=== PATIENT | male | born 1955 | race Caucasian/White ===

== ENCOUNTER 2016-10-09 19:58 | Emergency (ER) | payer MEDICARE ==
[2016-10-09 20:18] VITALS: BP 159/88
--- NOTE | 2016-10-09 20:55 | RAD ---
INDICATION: Cough and wheezing COMPARISON: Chest x-ray November 26, 2014 TECHNIQUE: PA and lateral dual-energy views were obtained. FINDINGS: Bones/Soft Tissues: There are no acute bony findings. Cardiomediastinal: The cardiomediastinal silhouette is unchanged. The central pulmonary vessels are prominent perhaps related to pulmonary arterial hypertension. Lungs: There are no infiltrates. There is hyperinflation. Pleura: There are no pleural effusions. Other: None IMPRESSION: HYPERINFLATION. NO ACTIVE DISEASE..
[2016-10-09] MEDS ORDERED: Albuterol HFA INHALER* 8 gm MDI INH ONE (21:05)
[2016-10-09] MEDS ORDERED: Benzonatate CAP* 100 MG PO ONE (21:06)
--- NOTE | 2016-10-09 21:17 | UC ---
FLU HPI - HPI Summary HPI Summary: THREE DAYS OF COUGH FEVER BODY ACHES, SORE THROAT. TODAY FEVER WAS 101F. SYMPTOMS BEGAN WITH COUGH SORE THROAT, NASAL CONGESTION. SORE THROAT NO WRESOLVED, BUT COUGH IS BECOMING WORSE. - History of Current Complaint Chief Complaint: UCGeneralIllness Stated Complaint: COUGH Time Seen by Provider: 10/09/16 20:01 Hx Obtained From: Patient Onset/Duration: Gradual Onset, Lasting Days, Still Present Severity Currently: Moderate Severity Initially: Mild Associated Signs & Symptoms: Positive: Fever, Myalgia, Cough, Sore Throat - RESOLVED, Nasal Congestion Related Hx: Possible Flu/Infectious Exposure - Allergy/Home Medications Allergies/Adverse Reactions: Allergies Allergy/AdvReac Type Severity Reaction Status Date / Time No Known Allergies Allergy Verified 10/09/16 20:10 PMH/Surg Hx/FS Hx/Imm Hx Previously Healthy: Yes Endocrine History Of: Reports: Diabetes Denies: Thyroid Disease Cardiovascular History Of: Reports: Cardiac Disorders - stent, Hypertension Denies: Pacemaker/ICD Respiratory History Of: Denies: COPD, Asthma GI/ History Of: Denies: Ulcer Psychological History Of: Reports: Anxiety, Depression - Surgical History Surgical History: Yes Surgery Procedure, Year, and Place: CARDIAC STENT 2000 INFO IN PACS UNDER MRI TETRA STENT,. BASAL CELL - REMOVED FROM FACE. SPINAL STIMULATOR - ALL COMPONENTS HAVE BEEN REMOVED ABOUT - 4 YRS AGO - @ [facility] [place] - Family History Known Family History: Positive: Cardiac Disease Negative: Hypertension, Diabetes - Social History Occupation: Employed Full-time Lives: With Family Alcohol Use: None Substance Use Type: None Smoking Status (MU): Former Smoker Type: Cigarettes Length of Time of Smoking/Using Tobacco: 20 years Have You Smoked in the Last Year: No When Did the Patient Quit Smoking/Using Tobacco: 10 yrs ago - Immunization History Most Recent Influenza Vaccination: none Most Recent Tetanus Shot: 2013 Most Recent Pneumonia Vaccination: none Review of Systems Constitutional: Fever, Chills Skin: Negative Eyes: Negative ENT: Negative Respiratory: Cough Cardiovascular: Negative Gastrointestinal: Negative Genitourinary: Negative Motor: Negative Neurovascular: Negative Musculoskeletal: Myalgia Neurological: Negative Psychological: Negative All Other Systems Reviewed And Are Negative: Yes Physical Exam Triage Information Reviewed: Yes Appearance: Well-Appearing, No Pain Distress, Well-Nourished Vital Signs: Initial Vital Signs Temp 99 F 10/09/16 20:13 Pulse 76 10/09/16 20:13 Resp 18 10/09/16 20:13 BP 159/88 10/09/16 20:13 Pulse Ox 96 10/09/16 20:13 Vital Signs Reviewed: Yes Eye Exam: Normal Eyes: Positive: Conjunctiva Clear ENT Exam: Normal ENT: Positive: Normal ENT inspection, Hearing grossly normal, Pharynx normal, TMs normal Dental Exam: Normal Neck exam: Normal Neck: Positive: Supple, Nontender Respiratory: Positive: Chest non-tender, Lungs clear, No respiratory distress, No accessory muscle use, Wheezing Cardiovascular Exam: Normal Cardiovascular: Positive: RRR, No Murmur, Pulses Normal Abdominal Exam: Normal Abdomen Description: Positive: Nontender, No Organomegaly Musculoskeletal Exam: Normal Musculoskeletal: Positive: Strength Intact Neurological Exam: Normal Psychological Exam: Normal Psychological: Positive: Normal Response To Family Skin Exam: Normal Flu Course/Dx - Differential Dx/Diagnosis Differential Diagnosis/HQI/PQRI: Bronchitis, Broncholiolitis, Influenza, Upper Respiratory Infection Provider Diagnoses: BRONCHITIS WITH BRONCHOSPASM Discharge - Discharge Plan Condition: Stable Disposition: HOME Prescriptions: Benzonatate CAP* [Tessalon CAP*] 100 mg PO TID PRN #15 cap PRN Reason: Cough Patient Education Materials: Upper Respiratory Infection (ED) Referrals: Louis Fernandez MD [Primary Care Provider] -
== END 2016-10-09 21:22 | disposition home or self-care (01) ==
LOC: UCEAST 19:58
DX: J20.9 Acute bronchitis, unspecified (principal); Z98.61 Coronary angioplasty status; Z85.828 Personal history of other malignant neoplasm of skin; Z87.891 Personal history of nicotine dependence
CPT/HCPCS: 71020; 87502; 99212; A9270-GY; G0463

== ENCOUNTER 2017-12-06 18:26 | Emergency (ER) | payer MEDICARE ==
[2017-12-06 19:21] VITALS: BP 163/80
--- NOTE | 2017-12-06 19:47 | UC ---
Respiratory Complaint HPI - HPI Summary HPI Summary: Patient presents with 1 week of persistent cough, chest congestion and overall malaise. States he has had a low-grade fever that broke last night. He is concerned that his cough and congestion are not improving and that he has some intermittent shortness of breath. Has a remote history of smoking having quit 20 years ago. - History of Current Complaint Chief Complaint: UCGeneralIllness Stated Complaint: COUGH Time Seen by Provider: 12/06/17 19:29 Hx Obtained From: Patient Onset/Duration: Gradual Onset, Lasting Days, Still Present Timing: Constant Severity Initially: Moderate Severity Currently: Moderate Pain Intensity: 0 Pain Scale Used: 0-10 Numeric Character: Cough: Nonproductive Aggravating Factors: Nothing Alleviating Factors: Nothing Associated Signs And Symptoms: Positive: Fever, Chills, URI, Nasal Congestion - Allergies/Home Medications Allergies/Adverse Reactions: Allergies Allergy/AdvReac Type Severity Reaction Status Date / Time No Known Allergies Allergy Verified 12/06/17 19:10 Home Medications: Home Medications Ibuprofen TAB* [Motrin TAB* 600 MG] 600 mg PO Q6H PRN 12/06/17 [History Confirmed 12/06/17] PMH/Surg Hx/FS Hx/Imm Hx Cardiovascular History: Cardiac Disease, Hypertension - Surgical History Surgical History: Yes Surgery Procedure, Year, and Place: CARDIAC STENT 2000 INFO IN PACS UNDER MRI TETRA STENT,. BASAL CELL - REMOVED FROM FACE. SPINAL STIMULATOR - ALL COMPONENTS HAVE BEEN REMOVED ABOUT - 4 YRS AGO - @ [facility] – [place] - Family History Known Family History: Positive: Cardiac Disease, Hypertension Negative: Diabetes - Social History Alcohol Use: None Substance Use Type: None Smoking Status (MU): Former Smoker Type: Cigarettes Length of Time of Smoking/Using Tobacco: 20 years Have You Smoked in the Last Year: No When Did the Patient Quit Smoking/Using Tobacco: 10 yrs ago - Immunization History Most Recent Influenza Vaccination: none Most Recent Tetanus Shot: 2013 Most Recent Pneumonia Vaccination: none Review of Systems Constitutional: Fever, Chills, Fatigue ENT: Sore Throat Respiratory: Cough Cardiovascular: Negative Gastrointestinal: Negative All Other Systems Reviewed And Are Negative: Yes Physical Exam Triage Information Reviewed: Yes Appearance: Well-Appearing, No Pain Distress, Well-Nourished Vital Signs: Initial Vital Signs Temp 99.3 F 12/06/17 19:13 Pulse 66 12/06/17 19:13 Resp 20 12/06/17 19:13 BP 163/80 12/06/17 19:13 Pulse Ox 96 12/06/17 19:13 Vital Signs Reviewed: Yes Eyes: Positive: Conjunctiva Clear ENT: Positive: Hearing grossly normal, Pharynx normal, TMs normal Neck: Positive: Supple, Nontender, No Lymphadenopathy Respiratory: Positive: No respiratory distress, No accessory muscle use, Decreased breath sounds, Wheezing - DIFFUSE Cardiovascular Exam: Normal Abdomen Description: Positive: Soft Musculoskeletal: Positive: No Edema Neurological: Positive: Alert Psychological: Positive: Age Appropriate Behavior Skin: Negative: rashes UC Diagnostic Evaluation - Laboratory O2 Sat by Pulse Oximetry: 96 - Radiology Xray Interpretation: Positive (See Comments) - HYPERINFLATION, CONSISTENT WITH COPD. NO ACTIVE CARDIOPULMONARY DISEASE. Radiology Interpretation Completed By: Radiologist Respiratory Course/Dx - Differential Dx/Diagnosis Provider Diagnoses: ACUTE BRONCHITIS Discharge - Sign-Out/Discharge Documenting (check all that apply): Discharge - Discharge Plan Condition: Stable Disposition: HOME Prescriptions: Albuterol HFA INHALER* [Ventolin HFA Inhaler*] 2 puff INH Q4H PRN #1 mdi PRN Reason: Shortness Of Breath Azithromycin 500 mg PO DAILY #4 tab predniSONE TAB* [Deltasone TAB*] 50 mg PO DAILY #4 tab Patient Education Materials: Acute Bronchitis (ED), COPD (Chronic Obstructive Pulmonary Disease) (ED) Referrals: Louis Fernandez MD [Primary Care Provider] - If Needed Additional Instructions: Chest x-ray today showed changes consistent with COPD. Consider having this officially evaluated by your primary care physician. Will treat today for acute bronchitis. YOUR SYMPTOMS MAY BE VIRALLY MEDIATED BUT GIVEN THE LENGTH OF TIME YOU HAVE BEEN ILL WE WILL COVER YOU WITH ANTIBIOTICS. IF YOU START THE MEDICINE BE SURE TO TAKE IT FOR THE FULL COURSE. REST, HYDRATE, OTC MEDS NEEDED. WILL ALSO TREAT WITH PREDNISONE AND RENEW ALBUTEROL INHALER TO HELP WITH AIRWAY INFLAMMATION. SEEK FOLLOW-UP WITH YOUR PCP IF YOU ARE NOT IMPROVING OVER THE NEXT 1-2 WEEKS. - Billing Disposition and Condition Condition: STABLE Disposition: HOME
--- NOTE | 2017-12-06 20:00 | RAD ---
HISTORY: Cough, fever COMPARISONS: October 09, 2016 VIEWS: 4: Frontal dual-energy and lateral views of the chest. FINDINGS: CARDIOMEDIASTINAL SILHOUETTE: The cardiomediastinal silhouette is normal. EMEKA: The emeka are normal. PLEURA: The costophrenic angles are sharp. No pleural abnormalities are noted. LUNG PARENCHYMA: There is hyperinflation with flattening of the diaphragm and expansion of the AP diameter of the chest. ABDOMEN: The upper abdomen is clear. There is no subphrenic gas. BONES AND SOFT TISSUES: Degenerative changes are noted along the spine. OTHER: None. IMPRESSION: HYPERINFLATION, CONSISTENT WITH COPD. NO ACTIVE CARDIOPULMONARY DISEASE.
[2017-12-06] MEDS ORDERED: Azithromycin TAB* 250 MG PO ONE (20:27)
[2017-12-06] MEDS ORDERED: predniSONE TAB* 20 MG PO ONE (20:27)
== END 2017-12-06 20:35 | disposition home or self-care (01) ==
LOC: UCEAST 18:26
DX: J20.9 Acute bronchitis, unspecified (principal); Z87.891 Personal history of nicotine dependence
CPT/HCPCS: 71046; 99212; A9270-GY; G0463; J7512

== ENCOUNTER 2018-07-02 14:15 | Observation (INO) | payer MEDICARE ==
[2018-07-02] MEDS ORDERED: Diltiazem IV* 5 MG/ML 5 ML VIAL (for loading dose/IV Push) (25 MG) IV SLOW PU ONE (14:39)
--- NOTE | 2018-07-02 15:19 | ED ---
Palpitations / Dysrhythmia - HPI Summary HPI Summary: This patient is a 62 year old M presenting to [facility] [place] accompanied by his son with a chief complaint of shortness of breath since 0900. He endorses SOB (1st onset sx, only with exertion), bloating like I just had eaten a huge meal, intermittent chest discomfort, decreased appetite. He denies current CP, abd pain, nausea, dizziness, lightheadedness, and diaphoresis. PMHx angina, 4x stents placed in January 2018, palpitations (undiagnosed), and denies PMHx PA. He went to see his PCP about the acute dyspnea and was found to be in rapid atrial fibrillation and was referred to the ED. His anginal symptoms have been stable since last his procedure this past spring, and he has not had any anginal type symptoms accompanying his presentation today. - History of Current Complaint Chief Complaint: EDDysrhythmPalp Time Seen by Provider: 07/02/18 14:22 Hx Obtained From: Patient Onset/Duration: Sudden Onset, Lasting Hours, Still Present Timing: Constant Severity Initially: Moderate Severity Currently: Moderate Character: Fast, Fluttering Aggravating: Exertion - SOB Alleviating: Rest - SOB Associated Signs & Symptoms: Shortness of Breath - Allergy/Home Medications Allergies/Adverse Reactions: Allergies Allergy/AdvReac Type Severity Reaction Status Date / Time No Known Allergies Allergy Verified 12/06/17 19:10 Home Medications: Home Medications Aspirin EC TAB* [Ecotrin EC Low Dose 81 MG*] 81 mg PO DAILY 07/02/18 [History Confirmed 07/02/18] Lisinopril TAB* [Prinivil TAB*] 10 mg PO BID 07/02/18 [History Confirmed ] Modafinil TAB* [Provigil TAB*] 200 mg PO DAILY 07/02/18 [History Confirmed 07/02] Oxycodone TAB(NF) [Oxycodone HCl 10 MG] 10 mg PO TID PRN 07/02/18 [History Confirmed 07/02/18] Prasugrel (NF) [Effient (NF)] 10 mg PO DAILY 07/02/18 [History Confirmed ] amLODIPine TAB* [Norvasc 5 mg TAB*] 5 mg PO DAILY 07/02/18 [History Confirmed ] oxyCODONE SR TAB(*) [Oxycontin 40 mg (*)] 40 mg PO Q12HR 07/02/18 [History Confirmed 07/02/18] PMH/Surg Hx/FS Hx/Imm Hx Endocrine/Hematology History: Denies: Hx Diabetes, Hx Thyroid Disease Cardiovascular History: Reports: Hx Coronary Artery Disease, Hx Hypertension - ON MEDS Denies: Hx Pacemaker/ICD Respiratory History: Denies: Hx Asthma, Hx Chronic Obstructive Pulmonary Disease (COPD) GI History: Reports: Hx Gastroesophageal Reflux Disease, Hx Hiatal Hernia Denies: Hx Ulcer Musculoskeletal History: Reports: Hx Arthritis, Hx Back Problems Sensory History: Reports: Other Sensory Impairments - 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 Denies: Hx Deafness, Hx Hearing Aid Opthamlomology History: Reports: Other Sensory Impairments - 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 BASAL CELL - REMOVED FROM FACE. SPINAL STIMULATOR - ALL COMPONENTS HAVE BEEN REMOVED ABOUT - 4 YRS AGO - [place] [facility] [place] Infectious Disease History: No Infectious Disease History: Reports: Hx Tuberculosis - positive Denies: Hx Clostridium Difficile, Hx Hepatitis, Hx Human Immunodeficiency Virus (HIV), Hx of Known/Suspected MRSA, Hx Shingles, Hx Known/Suspected VRE, Hx Known/Suspected VRSA, History Other Infectious Disease, Traveled Outside the [place] in Last 30 Days - Family History Known Family History: Positive: Cardiac Disease, Hypertension Negative: Diabetes - Social History Alcohol Use: Rare Hx Substance Use: No Substance Use Type: Reports: None Hx Tobacco Use: No Smoking Status (MU): Former Smoker Type: Cigarettes Length of Time of Smoking/Using Tobacco: 20 years Have You Smoked in the Last Year: No Review of Systems Negative: Skin Diaphoresis Positive: Palpitations. Negative: Chest Pain Positive: Shortness Of Breath Positive: Other - bloated feeling, decreased appetite. Negative: Abdominal Pain , Nausea Positive: no symptoms reported Neurological: Other - NEGATIVE: dizziness and lightheadedness All Other Systems Reviewed And Are Negative: Yes Physical Exam - Summary Physical Exam Summary: Appearance: Well-appearing, Well-nourished, lying in bed comfortably Skin: Warm, dry, no obvious rash Eyes: sclera anicteric, no conjunctival pallor ENT: mucous membranes moist, pharynx appears normal Neck: Supple, nontender Respiratory: Clear to auscultation, no signs of respiratory distress Cardiovascular: Rapid, irregular pulse. No murmurs. Normal distal pulses in tibial and radial bilaterally. Abdomen: Soft, nontender, normal active bowel sounds present Musculoskeletal: Normal, Strength/ROM Intact Neurological: A&Ox3, awake and alert, mentation is normal, speech is fluent and appropriate Psychiatric: affect is normal, does not appear anxious or depressed Triage Information Reviewed: Yes Vital Signs On Initial Exam: Initial Vitals Pulse Resp BP Pulse Ox 144 18 137/89 97 07/02/18 14:18 07/02/18 14:18 07/02/18 14:18 07/02/18 14:18 Vital Signs Reviewed: Yes Diagnostics - Vital Signs Vital Signs Pulse Resp BP Pulse Ox 07/02/18 15:04 116 15 120/84 07/02/18 15:02 115 13 132/87 93 07/02/18 15:00 121 13 95 07/02/18 14:59 98 9 138/91 95 07/02/18 14:39 111 11 134/101 97 07/02/18 14:38 20 07/02/18 14:18 144 18 137/89 97 - Laboratory Result Diagrams: 07/02/18 15:27 07/02/18 15:27 Lab Statement: Any lab studies that have been ordered have been reviewed, and results considered in the medical decision making process. - Radiology CXR Xray Interpretation: No Acute Changes Radiology Interpretation Completed By: Radiologist - No active cardiopulmonary disease is noted. Dr. Euceda has reviewed this report. - EKG 1420 Cardiac Rate: Tachycardia - 122 EKG Rhythm: Atrial Fibrillation Ectopy: None EKG Interpretation: AFib with RVR, RBBB, LAFB Course/Dx - Course Course Of Treatment: A 62-year-old M presents to the ED with a CC of fluttering palpitations for since 0900. (+) bloated feeling "like I just ate a huge meal", decreased appetite, SOB at exertion. (-) nausea, current CP, dizziness, lightheadedness, abd pain, diaphoresis. PMHx angina, undiagnosed palpitations. A CXR was (-). An EKG reveals atrial fibrillation with RVR at 122 BPM, RBBB, and LAFB. In the ED course, pt was given diltiazem. Pt labs show a trop of 0.09 , and a 2nd trop of 0.21, low lypmh %, high mono %, high glucose, - Diagnoses Provider Diagnoses: New onset atrial fibrillation, Atrial fibrillation with rapid ventricular response - Physician Notifications Discussed Care Of Patient With: Carlyn Ross Time Discussed With Above Provider: 17:35 Instructed by Provider To: Other - Accepts admission. Discharge - Sign-Out/Discharge Documenting (check all that apply): Patient Departure - admit - Discharge Plan Condition: Fair Disposition: ADMITTED TO [facility] - Attestation Statements Document Initiated by Scribe: Yes Documenting Scribe: Eliceo Ward Provider For Whom Scribe is Documenting (Include Credential): Dr. Juan José Euceda MD Scribe Attestation: IEliceo, scribed for Dr. Juan José Euceda MD on 07/02/18 at 1903.
--- NOTE | 2018-07-02 15:22 | RAD ---
Indication: New onset atrial fibrillation with shortness of breath. Single frontal view of the chest performed at 1515 hours was reviewed. Comparison is made with previous exam dated December 06, 2017. No mediastinal shift is noted. Heart is of normal size and configuration. Lung breaux appear clear. IMPRESSION: NO ACTIVE CARDIOPULMONARY DISEASE IS NOTED.
[2018-07-02 15:44] LABS: ABS Basophils 0 10^3/ul (0-0.2); ABS Eosinophils 0.1 10^3/ul (0-0.6); ABS Lymphocytes 1.4 10^3/ul (1.0-4.8); ABS Monocytes 0.7 10^3/ul (0-0.8); ABS Neutrophils 6.6 10^3/ul (1.5-7.7); ABS Nucleated RBC 0 10^3/ul; Eosinophil % 1.3 % (0-6); Hematocrit 42 % (42-52); Lymphocyte % 15.6 % (25-47); Mean Corpuscular HGB Conc 34 g/dl (31-36); Mean Corpuscular Hemoglobin 30 pg (27-31); Mean Corpuscular Volume 89 fL (80-94); Mean Platelet Volume 7.7 um3 (7.4-10.4); Nucleated Red Blood Cells % 0; Platelet Count 263 10^3/ul (150-450); Red Blood Count 4.69 10^6/ul (4.00-5.40); Red Cell Distribution Width 13 % (10.5-15); White Blood Count 8.8 10^3/ul (3.5-10.8)
[2018-07-02 16:04] LABS: EGFR Non-African American 108.2 (>60)
[2018-07-02] MEDS ORDERED: oxyCODONE TAB* 5 MG TAB PO PRN (18:19)
[2018-07-02] MEDS ORDERED: NS 0.9% 500 ML* 500 ML IV ONE (18:23)
[2018-07-02] MEDS ORDERED: Diltiazem IV* 5 MG/ML 5 ML VIAL (for loading dose/IV Push) (25 MG) IV SLOW PU STA (18:23)
[2018-07-02] MEDS ORDERED: Metoprolol Tartrate IV* 1 MG/ML 5 ML VIAL IV PRN ×2 (18:25→18:26)
[2018-07-02] MEDS ORDERED: NS 0.9% 1000 ML* 1,000 ML IV SCH (18:30)
[2018-07-02] MEDS ORDERED: Enoxaparin(*) 40 MG/0.4 ML SYR SUBCUT SCH (20:00)
[2018-07-02] MEDS ORDERED: ALPRAZolam TAB* 0.5 MG PO PRN (20:24)
[2018-07-02] MEDS: oxyCODONE SR TAB(*) 40 MG TAB.SR PO SCH (21:33)
[2018-07-02] MEDS: Lisinopril TAB* 10 MG PO SCH (21:33)
--- NOTE | 2018-07-02 21:33 | HP ---
ADMISSION HISTORY AND PHYSICAL: DATE OF ADMISSION: 07/02/18. CHIEF COMPLAINT: Shortness of breath. HISTORY OF PRESENT ILLNESS: The patient is a 62-year-old gentleman with history of hypertension, CAD, status post PCI to the RCA back in 2000, and a repeat PCI to RCA with drug eluting stent x4 in January of 2018, who denies any previous history of CO, but has had a history of angina, who presented with the above chief complaint. He mentioned that after eating breakfast he felt a lot velarde that what he would usually feel after eating and felt short of breath especially with mild exertion such as walking or any mild activity. He then went to a [facility] at around 12:20 PM where an EKG was done and he was told that his heart rate was elevated and he was in AFib, and recommended that he be evaluated in the ED and hence his subsequent evaluation and admission for observation. In the ED, he was indeed found to have AFib with mild rapid ventricular response in the rate of 120s. He had received one time dose of 15 mg IV Cardizem in the ED and mentioned that he feels better although his heart rate is still in the 110s to 120s and sometimes high 90s. PAST MEDICAL HISTORY: Hypertension, depression, obesity, PTSD, lumbosacral spondylosis, unknown skin cancer, hyperlipidemia, history of CAD, status post PCI to RCA in 2000, and repeat PCI to RCA with HARJIT x4 in 01/2018. PAST SURGICAL HISTORY: There are no known surgical history other than PCIs. ALLERGIES: SERZONE. FAMILY HISTORY: Father related to cigarettes and the patient's father was diagnosed with heart disease in his 60s. His mother is alive and well, although has been diagnosed with some form of heart disease in her 70s. SOCIAL HISTORY: He quit smoking more than 20 years ago. Denies any history of alcohol or drug use. He is retired and healthcare proxy is his . REVIEW OF SYSTEMS: He complained of some shortness of breath and palpitation, but no longer has them at the time of my evaluation and he denied any headache, fevers, chills, nausea, vomiting, chest pain. He did complain of some shortness of breath, which had recently resolved as described. Denied any abdominal pain, diarrhea, constipation, pain, and/or increased frequency, and urination, myalgias, arthralgias, throat pain or new skin lesions. The rest of the 14 point review of systems are otherwise unremarkable. PHYSICAL EXAMINATION GENERAL APPEARANCE: The patient is awake, alert, and oriented x3, no in acute distress. VITAL SIGNS: Reveals most recent vital signs of records with blood pressure of 129/92, 97 beats per minute heart rate, saturating at 96%, respiratory rate of 15 per minute. HEENT: Normocephalic, atraumatic. PERRLA. Extraocular muscles intact. Negative for icterus. Moist oral mucosa. Negative throat erythema. NECK: Soft, supple with no cervical lymphadenopathy. No JVD. LUNGS: Clear to auscultation bilaterally. Good air entry. No wheezes, rales or rhonchi. HEART: S1, S2 within normal limits. Regular rate and rhythm. No murmurs, rubs or gallops. ABDOMEN: Soft, nondistended, nontender. Normoactive bowel sounds x4 quadrants. EXTREMITIES: No cyanosis, clubbing or edema. PSYCHIATRIC: No active psychosis, depression, suicidal or homicidal ideations. SKIN: Warm to touch. DIAGNOSTIC STUDIES/LAB DATA: Most recent and pertinent laboratories, CBC shows WBC, H and H, and platelets counts were normal, although in the differential, he had some mild monocytosis of 7.6. D-dimer is less than 200. Sodium, potassium, BUN, and creatinine as well as his GFR are in normal range. Troponin is mildly elevated at 0.09. Serum alcohol level is less than 10. TSH of 1.02. Chest x-ray shows no acute disease. EKG shows atrial fibrillation with mild rapid ventricular response at a rate of 120s. ASSESSMENT AND PLAN: As follows, the patient is a 62-year-old gentleman with a history of hyperlipidemia, hypertension, coronary artery disease, status post percutaneous coronary intervention, being admitted for new onset atrial fibrillation with a SANDRA VASc score of 1. 1. New onset atrial fibrillation unclear what may have been precipitated this; however, on review of his medications, he is on modafinil and he mentions that he has been prescribed recently new psychiatric drugs that he has not taken and since this can cause tachycardia, we will hold this for now. I am unclear as to whether modafinil was the medication that he mentioned and we will clarify in a.m. At this time, we will continue to monitor troponins and likely elevated troponin is likely due to demand ischemia given known coronary artery disease. Given the patient's SANDRA VASc score is 1 and the patient is on dual- antiplatelet therapy, my inclination for anticoagulation at this point is weak unless other comorbidities are found. He mentions that although he has had documented diabetes in his previous records, this was thought not to be real and hence was not taken into account in calculation of his SANDRA VASc score. However, we will perform a fasting glucose level as well as check his HbA1c to confirm and we will reassess SANDRA VASc score then. We will also check TSH and free T4. 2. History of coronary artery disease. Continue aspirin and prasugrel, continue lisinopril. I am unclear as to why is not on any statins at this time especially when he has a supposed history of hyperlipidemia. We will check fasting lipid levels in a.m. as well. 3. Hypertension. We will continue amlodipine, metoprolol as well as lisinopril and certainly the patient will receive p.r.n. Lopressor and another one time dose of diltiazem for his mildly elevated heart rate and we will start the patient on low dose oral diltiazem given he is maximized on metoprolol. 4. Mildly elevated troponins. Please see above discussion. 5. Hyperlipidemia. We will check fasting lipid levels. 6. DVT prophylaxis: We will place the patient on Lovenox subcu. 7. Disposition: As above, we will wait for 2D echo and above workup. [id number]/[facility] #: [id number] HECTOR
[2018-07-02] MEDS: Metoprolol Tartrate TAB* 50 mg PO SCH (21:34)
[2018-07-02] MEDS: Diltiazem TAB* 30 MG PO SCH (23:38)
[2018-07-03 04:52] LABS: ABS Basophils 0 10^3/ul (0-0.2); ABS Eosinophils 0.2 10^3/ul (0-0.6); ABS Lymphocytes 2.1 10^3/ul (1.0-4.8); ABS Monocytes 0.7 10^3/ul (0-0.8); ABS Neutrophils 3.8 10^3/ul (1.5-7.7); ABS Nucleated RBC 0 10^3/ul; Hematocrit 39 % (42-52); Hemoglobin 13.2 g/dl (14.0-18.0); Lymphocyte % 30.8 % (25-47); Mean Corpuscular HGB Conc 34 g/dl (31-36); Mean Corpuscular Hemoglobin 30 pg (27-31); Mean Corpuscular Volume 90 fL (80-94); Mean Platelet Volume 7.7 um3 (7.4-10.4); Nucleated Red Blood Cells % 0.1; Platelet Count 242 10^3/ul (150-450); Red Blood Count 4.35 10^6/ul (4.00-5.40); Red Cell Distribution Width 13 % (10.5-15); White Blood Count 6.8 10^3/ul (3.5-10.8)
[2018-07-03 05:10] LABS: EGFR Non-African American 82.8 (>60)
[2018-07-03] MEDS: Diltiazem TAB* 30 MG PO SCH ×2 (05:10→12:26)
[2018-07-03] MEDS: CMCS:Prasugrel (NF) 10 MG PO SCH (08:02)
[2018-07-03] MEDS: Lisinopril TAB* 10 MG PO SCH (08:03)
[2018-07-03] MEDS: Metoprolol Tartrate TAB* 50 mg PO SCH ×2 (08:03→21:01)
[2018-07-03] MEDS: oxyCODONE SR TAB(*) 40 MG TAB.SR PO SCH ×2 (08:03→21:01)
[2018-07-03] MEDS ORDERED: Aspirin EC TAB* 81 MG TAB.EC PO SCH (09:00)
[2018-07-03] MEDS ORDERED: amLODIPine TAB* 5 MG PO SCH (09:00)
[2018-07-03] MEDS ORDERED: Pneumococcal *Vac Polyvalent 0.5 ML VIAL IM ONE (11:00)
[2018-07-03] MEDS ORDERED: Perflutren Lipid Microsphere* 3 ML VIAL ONE (11:21)
[2018-07-03] MEDS ORDERED: Regadenoson* 0.4 MG/5 ML SYRINGE ONE (14:18)
[2018-07-03] MEDS ORDERED: Aminophylline IV* 25 MG/ML 10 ML VIAL ONE (14:30)
--- NOTE | 2018-07-03 15:29 | RAD ---
HISTORY: Increasing troponins COMPARISONS: None TECHNIQUE: A 1 day stress/rest myocardial perfusion study was performed, with pharmacologic stress. The stress portion was monitored by Dr. Monterroso. Gated SPECT imaging was performed, with CT-based attenuation correction DOSE: Stress: Technetium 99m tetrofosmin, 25.4 millicuries, injected at 2:27 PM on July 03, 2018 Rest: Technetium 99m tetrofosmin, 10.6 millicuries, injected at 12:15 PM July 03, 2018 Pharmacologic agent: Lexiscan FINDINGS: CARDIAC MONITORING: No ECG changes with stress EF: 54 % TID: 0.93 MOTION: Normal motion, with normal wall thickening. PERFUSION: There is moderate reversible photopenic defect of the lateral wall OTHER: None IMPRESSION: MODERATE REVERSIBLE PERFUSION DEFECT OF THE LATERAL WALL SUGGESTIVE OF ISCHEMIA ASSESSMENT: INTERMEDIATE RISK. Based on imaging criteria from ACC/AHA 2002. Guideline Update for the Management of Patient's with Chronic Stable Angina, table 23. Noninvasive Risk Stratification.
[2018-07-03] MEDS ORDERED: fentaNYL* 50 MCG/ML 2 ML VIAL (100 MCG VIAL) ONE ×2 (15:31→15:37)
[2018-07-03] MEDS ORDERED: Flumazenil* 0.1 MG/ML 5 ML MDV ONE (15:31)
[2018-07-03] MEDS ORDERED: Naloxone* 0.4 MG/ML 1 ML VIAL ONE (15:31)
[2018-07-03] MEDS ORDERED: Midazolam* 1 MG/ML 10 ML VIAL (10 MG) ONE (15:32)
[2018-07-03] MEDS ORDERED: Lidocaine 2% VISCOUS* 15 ML UDC ONE (15:32)
[2018-07-03] MEDS ORDERED: Atorvastatin* 10 MG TAB PO SCH (17:00)
--- NOTE | 2018-07-03 17:36 | PN ---
Subjective Date of Service: 07/03/18 Interval History: Pt seen and examined. Meds and labs reviewed. ROS: Denied LOPZE/dizziness, F/C, N/V, CP, SOB, increased cough, sputum production , abd pain, diarrhea, constipation, dysuria, myalgias, arthralgias, throat pain , and new skin lesions. The rest of the 14 point ROS are unremarkable. PHYSICAL EXAM: GEN APPEARANCE: Awake, not in acute distress HEENT: NC/AT, PERRLA, moist oral mucosa, (-) throat erythema NECK: Soft, supple, (-) cervical LAD, (-)JVD HEART: S1S2 irregularly irregular, rate controlled, RRR, No MRG CHEST: CTA, BL, GAE, No W/R/R ABD: Soft, ND/NT, NABS 4x Q EXT: No C/C/E SKIN: Warm to touch PSYCH: No active psychosis, hallucinations, depression, SI/HI Objective Active Medications: Alprazolam (Xanax Tab*) 0.5 mg PO DAILY PRN PRN Reason: ANXIETY Apixaban (Eliquis*) 10 mg PO BID [facility] Atorvastatin Calcium (Lipitor*) 10 mg PO 1700 [facility] Diltiazem HCl (Cardizem Cd Cap*) 120 mg PO DAILY [facility] Metoprolol Tartrate (Lopressor Tab*) 100 mg PO BID [facility] Last Admin: 07/03/18 08:03 Dose: 100 mg Metoprolol Tartrate (Lopressor Iv*) 5 mg IV Q6H PRN PRN Reason: HEART RATE/PULSE Oxycodone HCl (Oxycontin(*)) 40 mg PO Q12HR [facility] Last Admin: 07/03/18 08:03 Dose: 40 mg Oxycodone HCl (Roxycodone Tab*) 10 mg PO TID PRN PRN Reason: PAIN Last Admin: 07/02/18 18:53 Dose: 10 mg Prasugrel (Effient (Nf)) 10 mg PO DAILY [facility] Last Admin: 07/03/18 08:02 Dose: 10 mg Vital Signs - 8 hr 07/03/18 07/03/18 10:32 11:42 Temperature 98.4 F Pulse Rate 76 Respiratory 16 20 Rate Blood Pressure 151/81 (mmHg) O2 Sat by Pulse 98 Oximetry Oxygen Devices in Use Now: None Result Diagrams: 07/03/18 04:29 07/03/18 04:29 Assess/Plan/Problems-Billing Assessment: - Patient Problems (1) Atrial fibrillation Current Visit: Yes Status: Acute Code(s): I48.91 - UNSPECIFIED ATRIAL FIBRILLATION SNOMED Code(s): 56044093 Comment: #New onset A.fib: -Hba1c suggests relatively well controlled diabetes with diet and exercise and with DM, CHADS-VaSC =2 -TSH and FT4 WNL -R/O for VTE -Pt initially placed on full anticoagulation on Lovenox for rising troponins, however, will change this now given pt S/P YAZAN cardioversion and should stay on anticoagulant for a month due to dangers of VTE post cardioversion due to myocardial stunning; will defer with Dr. 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 Monterroso -D/C short-acting Diltiazem to long acting---will start at 120 mg CD and may go up to 180 mg as BP tolerates -Will continue to hold Amolodipine given addition of Diltiazem in regimen and will D/C this on pts planned D/C -Will hold ASA due to increase chances of bleeding and given pt is 6 mos post recent HARJIT placement -Continue Prasugrel -Appreciate Dr. Lloyd input (2) CAD (coronary artery disease) Current Visit: Yes Status: Acute Code(s): I25.10 - ATHSCL HEART DISEASE OF [place] CORONARY ARTERY W/O ANG PCTRS SNOMED Code(s): 28908846 Comment: -As above -Continue Prasugrel -Continue Atorvastatin and Metoprolol (3) HTN (hypertension) Current Visit: Yes Status: Acute Code(s): I10 - ESSENTIAL (PRIMARY) HYPERTENSION SNOMED Code(s): 90907307 Comment: -Please see above discussion for medication changes -Will continue watchful waiting (4) Elevated troponin Current Visit: Yes Status: Acute Code(s): R74.8 - ABNORMAL LEVELS OF OTHER SERUM ENZYMES SNOMED Code(s): 232334883 Comment: -Now trending down -Possibly due to demand ischemia given RVR on admission -Stress-test shows he is intermediate risk and given significant hx of CAD, may need a repeat catheterization as outpt---will defer with Dr. 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
[2018-07-03] MEDS: Diltiazem CD CAP* 120 MG PO SCH (18:11)
--- NOTE | 2018-07-03 18:53 | CONS ---
CC: Dr. Desai CARDIOLOGY CONSULTATION: DATE OF CONSULT: 07/03/18 REQUESTING PHYSICIAN: Dr. Zeke Villa. REASON FOR EVALUATION: AFib, non-STEMI. HISTORY OF PRESENT ILLNESS: This is a 62-year-old gentleman who has a history of coronary artery disease, status post revascularization in the past who is in his usual state of health until yesterday. 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 He said he has been on a great deal of stress this last month. He said that yesterday he got up and felt okay, but after being stressed at work at his work site, he developed shortness of breath just walking 200 feet, also noted his heart was going fast and when he tried to take his pulse, it was irregular. Because of his symptoms, he went to see Dr. Morelos and Dr. Desai. He was found to be in AFib with rapid ventricular response and sent to the emergency room. He was started on IV diltiazem. He said he felt better after he was treated with diltiazem. He was observed overnight and treated with p.o. Cardizem short-acting. He said he has had no chest pain, no shortness of breath and actually feels better; however, he remains in AFib. His troponins initially were 0.21 last evening, 0.54 at 2131 last night, 0.65 at 4: 29 a.m., 0.36 at 10:08 a.m. His EKG revealed a right bundle-branch block with a rapid AFib. The AFib was new, but the right bundle- branch was old. He drinks 2 cups of coffee a day. He denies any constitutional symptoms, fevers, chills, sweats, diarrhea, nausea, vomiting. He did state that when he has AFib , he felt short of breath and tired and felt a fullness in his stomach. He has nothing similar to his angina in the past. He reports that he is sleepy during the day, but he attributes this to the stress disturbing sleep. He denies history of snoring. PAST MEDICAL HISTORY: 1. Hypertension. 2. Hyperlipidemia. He says he is on Lipitor, unknown dose at home. 3. Obesity. 4. He had angina back in 2000 and had a stent placed to his RCA according to the history, although records are pending. 5. He had angina again in January 2016. He started having chest pain again 2 years ago and underwent repeat stenting in January 2018 with 4 stents to treat according to the patient the occluded RCA. 6. He also has a history of depression. 7. Lumbosacral spondylosis. 8. Basal cell skin cancer removed from his cheek in 2001. PAST SURGICAL HISTORY: Includes: 1. Basal cell removed from his cheek. 2. Angioplasty. MEDICATIONS: As an outpatient include: 1. Amlodipine 5 mg a day. 2. Prasugrel 10 mg a day. 3. Lisinopril 10 mg b.i.d. 4. Provigil 200 mg a day. 5. Metoprolol tartrate 100 mg b.i.d. 6. Oxycodone 10 mg t.i.d. p.r.n. 7. OxyContin 40 mg q.12 p.r.n. As an inpatient, he is on: 1. Diltiazem 30 mg q.6. 2. Enoxaparin 120 mg subcu b.i.d. 3. Metoprolol 100 mg b.i.d. 4. Prasugrel 10 mg daily. 5. Aspirin 81 mg a day. 6. Alprazolam 0.5 mg a day. 7. Amlodipine 5 mg a day. 8. Lisinopril 10 mg b.i.d. ALLERGIES: Include HYPAQUE, which is open hives. He has had non-Hypaque contrast since then without problem. He also has allergy to SERZONE. FAMILY HISTORY: Includes father at 85 and mother at 94, both of coronary artery disease. He has 2 brothers who are alive and well. He quit smoking sometime around 1997. He denies alcohol use. He is , has 2 children. 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 REVIEW OF SYSTEMS: Review of systems x10 was negative except as above. PHYSICAL EXAM: On physical exam, he is a well-developed, well-nourished gentleman, obese, in no apparent distress. Blood pressure 151/81, heart rate was 108. No significant JVD. Carotids 2+. No bruits. Extraocular muscles intact. Sclerae anicteric. Atraumatic, normocephalic. Cardiac Exam: S1, S2. No murmurs, gallops, or rubs. Chest was clear. Extremities: No edema. Distal pulses intact. Trace edema of the ankles. Motor strength 5/5 bilaterally. Deep tendon reflexes 2/4. Alert and oriented x3. DIAGNOSTIC STUDIES/LAB DATA: EKG from today revealed atrial fibrillation with a controlled ventricular response in 70s, right bundle-branch block, similar to yesterday. Labs include sodium 142, potassium of 4.8, bicarb of 33, BUN of 13, creatinine of 0.92. Hemoglobin A1c mildly elevated at 6.8. Troponins were listed above. Cholesterol was 125 with LDL of 68, HDL of 33. TSH was normal. Magnesium is 2.0. D-dimer less than 200. Hemoglobin of 13.2, hematocrit of 39, platelet count 242. Chest x-ray from yesterday revealed no active cardiopulmonary disease. IMPRESSION: My impression is that Mr. Bradley has a history of coronary artery disease and what appears to be a newly diagnosed episode of atrial fibrillation started yesterday. He also has mild elevation of his enzymes, which may be related to the rapid response versus a primary coronary artery syndrome. For the time being, I recommend the following: Given that he has improved with rate control, we will continue Cardizem. He is to have a stress nuclear to evaluate for ischemia. We discussed the risks and benefits of cardioversion and once his stress test is done, we will consider a YAZAN-guided cardioversion. He understands need to refrain from caffeine use and to try to limit stress. We also talked about reduction of weight. After he is treated, he understands that the AFib may recur in the future and he may need further interventions and treatment. I also recommend anticoagulation now for at least a month and he could reassess long-term anticoagulation issues with primary scrap shear operator, Dr. Desai. Consider an evaluation for sleep apnea. [id number]/[facility] #: [id number] ADDENDUM: Patient underwent stress testing which revealed a moderate area of lateral ischemia He underwent YAZAN Cardioversion to NSR. I discussed with him , his , and Dr. Sher the results and recommended the followin. continue metoprolol. 2. add long acting diltiazem 120 mg cd to replace the amlodipine and short acting cardizem. 3. continue prasugrel; add eliquis. 4. given the risk of bleeding on triple rx, I suggest stopping aspirin given it has been almost 6 months since his PCI. 5. will watch for recurrent dyspnea or other symptoms of ischemia or recurrent afib. 6. If he develops ischemic symptoms, consider cath. 7. He is to followup with Dr. Ayon. 8. Avoid caffeine 9. Reduce weight 10 .consider outpatient evaluation for sleep apnea. HOWARD 10.19.18 MTDD
--- NOTE | 2018-07-03 18:56 | ECHO ---
Patient: KATHERINE WATKINS [facility] Rec#: [id number] : 1955 Date: 07/03/2018 Age: 62y Height: 180 cm / 70.9 in Weight: 117.9 kg / 259.9 lbs Sex: M BSA: 2.35 Room#: [facility] Admit Date#: 07/02/2018 Type: Inpatient Referring: Mele Villa Reading: Romeo Monterroso MD Blower Operator: Kathy Castano RDCS CC: Denver Desai CC: Louis Fernandez MD Transthoracic Echocardiogram Indication: Shortness of breath BP: 134/67 HR: 78 Rhythm: A-Fib Findings History: HTN, CAD, PCI to RCA 2000 with repeat PCI 01/30 x 4 stents, former smoker. Technical Comments: The study quality is fair. The study is technically limited due to poor apical windows. Completed at 1230. Left Ventricle: The left ventricular chamber size is normal. Mild to moderate concentric left ventricular hypertrophy is observed. There is normal left ventricular systolic function. The estimated ejection fraction is 55-60%. subtle relative inferior hypokinesis. There is septal flattening of the interventricular septum consistent with right ventricular volume or pressure overload. The assessment of diastolic function is non-diagnostic. Left Atrium: The left atrium is mildly dilated. Right Ventricle: Moderator Band present. The right ventricle is mildly dilated. The right ventricular global systolic function is low normal. Right Atrium: The right atrium is moderately dilated. Aortic Valve: The aortic valve is trileaflet. The aortic valve leaflets are mildly thickened. There is a trace of aortic regurgitation. There is no evidence of aortic stenosis. Mitral Valve: There is mitral annular calcification. The mitral valve leaflets are mildly thickened. There is a trace of mitral regurgitation. There is no evidence of mitral stenosis. Tricuspid Valve: The tricuspid valve leaflets are normal. There is trace tricuspid regurgitation. Unable to estimate the right ventricular systolic pressure. There is no tricuspid stenosis. Pulmonic Valve: The pulmonic valve appears normal. There is a trace pulmonic regurgitation. There is no pulmonic stenosis. Pericardium: There is no significant pericardial effusion. A pericardial fat pad is visualized. Aorta: There is mild dilatation of the ascending aorta. There is no dilatation of the aortic arch. There is mild dilatation of the aortic root. Pulmonary Artery: The main pulmonary artery is not well visualized. Venous: The inferior vena cava is dilated. There is a greater than 50% respiratory change in the inferior vena cava dimension. Contrast: Definity was used to optimize study. 3 mL of diluted Definity were utilized. Intravenous contrast was used to enhance endocardial border definition. Summary: There was not any prior study for comparison. Conclusions The study is technically limited due to poor apical windows. Mild to moderate concentric left ventricular hypertrophy is observed. The estimated ejection fraction is 55-60%. subtle relative inferior hypokinesis. There is septal flattening of the interventricular septum consistent with right ventricular volume or pressure overload. The left atrium is mildly dilated. The right ventricle is mildly dilated. The right ventricular global systolic function is low normal. The mitral valve leaflets are mildly thickened. There is trace tricuspid regurgitation. There is a trace pulmonic regurgitation. There is a trace of mitral regurgitation. There is mild dilatation of the ascending aorta. There is mild dilatation of the aortic root. The inferior vena cava is dilated. Measurements Name Value Normal Range RVIDd (AP) 2D 3.4 cm (0.9 - 2.6) RVDdMajor (2D) 4.7 cm (2.2 - 4.4) RAd ISD 4CH 6.5 cm (3.4 - 4.9) RA (A4C)W 4.6 cm (2.9 - 4.6) IVSd (2D) 1.3 cm (0.6 - 1) LVPWd (2D) 1.2 cm (0.6 - 1) LVIDd (2D) 5.1 cm (3.6 - 5.4) LVIDs (2D) 3.5 cm - LV FS (2D) 32 % (25 - 45) Aortic Annulus 2.4 cm (1.4 - 2.6) Ao root diameter (2D) 3.8 cm (2.1 - 3.5) Ascending Ao 3.9 cm (2.1 - 3.4) Aortic arch 2.4 cm (1.8 - 3.4) LA dimension (AP) 2D 4.5 cm (2.3 - 3.8) LAd ISD 4CH 6.6 cm (2.9 - 5.3) LA ISD 4CH W 5 cm (2.5 - 4.5) Name Value Normal Range LA ESV BP (A/L) index 34 ml/m2 - Name Value Normal Range MV E-wave Vmax 1.1 m/sec - MV deceleration time 190 msec - LV septal e' Vmax 0.09 m/sec - LV lateral e' Vmax 0.12 m/sec - LV E:e' septal ratio 12.23 ratio - Name Value Normal Range AV Vmax 1.5 m/sec - AV VTI 28.4 cm - AV peak gradient 9 mmHg - AV mean gradient 5 mmHg - LVOT Vmax 0.9 m/sec - LVOT VTI 174 cm - LVOT peak gradient 4 mmHg - LVOT mean gradient 2 mmHg - NEREIDA Vmax 0.9 m/sec - Name Value Normal Range IVC diameter 2.1 cm - Name Value Normal Range PV Vmax 0.7 m/sec - PV peak gradient 2 mmHg -
--- NOTE | 2018-07-03 19:01 | CONS ---
CC: Dr. Desai; Dr. Morelos CONSULTATION REPORT: ADDENDUM: MEDICATIONS: As an outpatient include: 1. Amlodipine 5 mg a day. 2. Prasugrel 10 mg a day. 3. Lisinopril 10 mg b.i.d. 4. Provigil 200 mg a day. 5. Metoprolol tartrate 100 mg b.i.d. 6. Oxycodone 10 mg t.i.d. p.r.n. 7. OxyContin 40 mg q.12 p.r.n. As an inpatient, he is on: 1. Diltiazem 30 mg q.6. 2. Enoxaparin 120 mg subcu b.i.d. 3. Metoprolol 100 mg b.i.d. 4. Prasugrel 10 mg daily. 5. Aspirin 81 mg a day. 6. Alprazolam 0.5 mg a day. 7. Amlodipine 5 mg a day. 8. Lisinopril 10 mg b.i.d. Further recommendations will depend of the results of this testing and cardioversion, however might be worthwhile converting him from amlodipine to diltiazem 120 mg to 180 mg p.o. daily depending on his heart rate and blood pressures. We will decrease his lisinopril for now given lower blood pressure this morning. He is at increase risk for bleeding on triple therapy with aspirin, Prasugrel, and anticoagulation. We may have to consider dropping his aspirin at this point in time. It has been more than 6 months since his intervention. [id number]/[facility] #: [id number] MTDD
--- NOTE | 2018-07-03 19:01 | TEE ---
Amended Report Patient: KATHERINE WATKINS [facility] Rec#: [id number] : 1955 Date: 07/03/2018 Age: 62y Height: 180.3 cm / 71.0 in Weight: 125.9 kg / 277.5 lbs Sex: M BSA: 2.42 Room#: [facility] Admit Date#: 07/02/2018 Type: Inpatient Referring: Romeo Monterroso MD Performing: Romeo Monterroso MD Reading: Romeo Monterroso MD Director Religious Education: Kathy Castano RDCS Nurse: Kathya Myers RN CC: Louis Fernandez MD Transesophageal Echocardiogram Indication: Atrial fibrillation BP: 159/97 HR: 69 Rhythm: A-Fib Findings History: HTN, HLD, CAD s/p PCI 01/30 x4, obesity. Left Ventricle: The left ventricular chamber size is normal. Global left ventricular wall motion and contractility are within normal limits. Left ventricular systolic function is at the lower limits of normal. The estimated ejection fraction is 50-55%. Left Atrium: The left atrium is mildly dilated. No thrombus is visualized within the left atrium. There is no thrombus visualized in the left atrial appendage. Right Ventricle: Moderator Band present. The right ventricular cavity size is normal. The right ventricular global systolic function is low normal. Right Atrium: The right atrium is mildly dilated. Interatrial septum appears intact without evidence of shunting. A patent foramen ovale is not demonstrated by color Doppler. Aortic Valve: The aortic valve is trileaflet. The aortic valve leaflets are mildly thickened. There is no evidence of aortic regurgitation. There is no evidence of aortic stenosis. Mitral Valve: The mitral valve leaflets are mildly thickened. There is mild mitral regurgitation. There are multiple small regurgitant jets. There is no evidence of mitral stenosis. Tricuspid Valve: The tricuspid valve leaflets are normal. There is trace tricuspid regurgitation. Unable to estimate the right ventricular systolic pressure. There is no tricuspid stenosis. Pulmonic Valve: The pulmonic valve appears normal. There is trace to mild pulmonic regurgitation. There is no pulmonic stenosis. Pericardium: There is no significant pericardial effusion. Aorta: There is mild dilatation of the ascending aorta. The aortic root is normal in size. There is plaque visualized in the transverse aorta. There is mild non-mobile atherosclerotic plaque in the visualized segments of the aorta. Pulmonary Artery: The main pulmonary artery appears normal. Venous: The bicaval view was obtained and appears normal. The pulmonary veins appear normal in size. 2 of 4 visualized. The flow pattern of the pulmonary veins appear normal. YAZAN Procedures: All standard views were attempted within the limitations of patient tolerance and safety. History and physical as well as labs were reviewed. The patient was in a fasting state. Risks and benefits of the procedure, including alternatives, were discussed and written informed consent was obtained. The patient and/or their health care national sales representative expressed understanding of the procedure, risks and benefits. Baseline and continuous monitoring of blood pressure, heart rate, pulse oximetry and heart rhythm was performed throughout the procedure. The appropriate time-out procedure was performed as per [facility] protocol. The patient was placed in the left lateral decubitus position. The patient received IV Midazolam with a total dose of 16 mg. The patient received IV Fentanyl with a total dose of 75 mcg. An oral bite block was inserted for protection of oral dentition. The multiplane transesophageal echocardiogram probe was inserted through the posterior oropharynx and advanced into the esophagus without difficulty. Multiple 2D images were obtained of the heart and its related structures. Color flow Doppler was used for evaluation. Spectral Doppler was also used. The transgastric view was not obtained as it was contraindicated by the patient's medical condition.Transgastric imaging was not obtained due to patient safety concerns. The atrial septum was interrogated with color flow Doppler. At the conclusion of the procedure the probe was removed with continuous suction without complications. The patient tolerated the procedure with no apparent complications. Conclusions Left ventricular systolic function is at the lower limits of normal. The estimated ejection fraction is 50-55%. The left atrium is mildly dilated. There is no thrombus visualized in the left atrial appendage. The right ventricular global systolic function is low normal. The right atrium is mildly dilated. Interatrial septum appears intact without evidence of shunting. A patent foramen ovale is not demonstrated by color Doppler. The aortic valve leaflets are mildly thickened. There is mild mitral regurgitation. There are multiple small regurgitant jets. There is trace tricuspid regurgitation. There is trace to mild pulmonic regurgitation. There is mild dilatation of the ascending aorta. There is plaque visualized in the transverse aorta. There is mild non-mobile atherosclerotic plaque in the visualized segments of the aorta. Measurements Name Value Normal Range Ao root diameter (2D) 3.1 cm (2.1 - 3.5) Ascending Ao 3.5 cm (2.1 - 3.4)
[2018-07-03] MEDS: Apixaban* 5 MG TAB PO SCH (20:59)
[2018-07-03] MEDS ORDERED: Enoxaparin(*) 150 MG/ML 1 ML SYRINGE SUBCUT SCH (21:00)
--- NOTE | 2018-07-04 04:29 | CARD ---
CC: Dr. Monterroso; Dr. Desai PROCEDURE NOTE: DATE OF PROCEDURE: 07/03/18 PROCEDURE: Cardioversion. INDICATIONS: This is a 62-year-old gentleman with a history of coronary artery disease, presented with dyspnea on exertion, found to be in AFib with rapid ventricular response. DESCRIPTION OF PROCEDURE: Informed consent was obtained. A YAZAN was performed prior to cardioversion after fasting for 6 hours. YAZAN revealed no evidence of intracardiac thrombus. He received 16 mg of Versed and 75 mcg of fentanyl for the YAZAN and prior to the cardioversion procedure. A single synchronized biphasic shock at 200 joules was applied with successful conversion to sinus rhythm. The patient tolerated the procedure well. IMPRESSION AND PLAN: The results were discussed with his at his request. The plan is as follows: 1. He will be recovered and observed overnight. 2. He is to continue on metoprolol and add Cardizem CD 120 mg of long-acting to his regimen. 3. He understands the potential for recurrent A-Fib. 4. His nuclear stress test revealed lateral ischemia. I discussed this with him and his . The plan is: continue medical therapy if he has persistent dyspnea on exertion or recurrent chest pain, he is to consider cardiac catheterization. He was advised to refrain from caffeine use and to continue his medicines without interruption. I would consider an outpatient evaluation for sleep apnea. He is to try to decrease his weight. He is to follow up with Dr. Desai. [id number]/[facility] #: [id number] HECTOR
[2018-07-04 05:42] LABS: ABS Basophils 0 10^3/ul (0-0.2); ABS Eosinophils 0.2 10^3/ul (0-0.6); ABS Lymphocytes 1.4 10^3/ul (1.0-4.8); ABS Monocytes 0.7 10^3/ul (0-0.8); ABS Neutrophils 4.7 10^3/ul (1.5-7.7); ABS Nucleated RBC 0 10^3/ul; Eosinophil % 3.2 % (0-6); Hematocrit 39 % (42-52); Hemoglobin 12.6 g/dl (14.0-18.0); Lymphocyte % 20.1 % (25-47); Mean Corpuscular HGB Conc 33 g/dl (31-36); Mean Corpuscular Hemoglobin 30 pg (27-31); Mean Corpuscular Volume 91 fL (80-94); Mean Platelet Volume 7.6 um3 (7.4-10.4); Nucleated Red Blood Cells % 0.1; Platelet Count 230 10^3/ul (150-450); Red Blood Count 4.23 10^6/ul (4.00-5.40); Red Cell Distribution Width 14 % (10.5-15); White Blood Count 7.1 10^3/ul (3.5-10.8)
[2018-07-04 08:12] VITALS: BP 130/65
[2018-07-04] MEDS: CMCS:Prasugrel (NF) 10 MG PO SCH (09:02)
[2018-07-04] MEDS: Metoprolol Tartrate TAB* 50 mg PO SCH (09:02)
[2018-07-04] MEDS: Apixaban* 5 MG TAB PO SCH (09:02)
[2018-07-04] MEDS: Diltiazem CD CAP* 120 MG PO SCH (09:02)
[2018-07-04] MEDS: oxyCODONE SR TAB(*) 40 MG TAB.SR PO SCH (09:02)
--- NOTE | 2018-07-04 23:09 | DS ---
CC: Dr. Can; Dr. Romeo Monterroso; Dr. Louis Fernandez; Dr. Desai, [place] DISCHARGE SUMMARY: DATE OF ADMISSION: DATE OF DISCHARGE: 07/04/18 DISCHARGE DIAGNOSES: As follows: 1. Atrial fibrillation, new onset. 2. History of coronary artery disease. 3. Hypertension, well controlled. 4. Elevated troponins likely secondary to demand ischemia secondary to atrial fibrillation with rapid ventricular response on presentation with possible lateral ischemia on stress test. 5. Hyperlipidemia. DISCHARGE MEDICATIONS: As follows: 1. Apixaban 10 mg p.o. b.i.d. for 6 more days, then decrease to 5 mg p.o. b.i.d. for 3 more weeks to complete the 1-month anticoagulation therapy status post YAZAN cardioversion. 2. Atorvastatin 10 mg p.o. daily. 3. Diltiazem 120 mg p.o. daily. 4. Metoprolol tartrate 100 mg p.o. b.i.d. 5. Oxycodone SR tab 40 mg p.o. q.12. 6. Oxycodone 10 mg p.o. t.i.d. p.r.n. 7. Prasugrel 10 mg p.o. daily. 8. Lisinopril 10 mg p.o. b.i.d. HISTORY OF PRESENT ILLNESS/HOSPITAL COURSE: The patient is a 62-year-old gentleman with history of hypertension; CAD, status post PCI to RCA back in 2010 and a repeat PCI to RCA with drug-eluting stent x4 in January of 2018, who denied any previous history of [place], but has had history of angina, who presented with shortness of breath with mild exertion and activity. He was found to have atrial fibrillation with rapid ventricular response in the [place] [facility] and hence was advised to present to the ED and hence this admission. On admission, he was seen by Dr. Monterroso, who then performed YAZAN cardioversion and hence the patient was placed on full anticoagulation on apixaban. Initially, he had troponins that were mildly increasing and because of this as well, he was placed on Lovenox prior to the initiation of apixaban. Lovenox has since then been changed to apixaban post YAZAN cardioversion. He was also placed on low-dose oral Cardizem despite not being placed on a Cardizem drip. He responded well with short-acting Cardizem which was then converted to long acting prior to his discharge and he has done well with this. His rapid ventricular response responded well with IV hydration as well as 2 boluses of Cardizem IV and subsequent switch to p.o. which is now being converted to a long -acting dose. He also had a stress test which revealed that he is intermediate risk with possible lateral ischemia. At this time, we will defer with Dr. Desai on followup whether he will require a repeat catheterization sometime in the future, but likely elevated troponin is due to demand ischemia due to RVR. In addition, he had been prescribed atorvastatin given his significant coronary artery disease despite his LDL being at goal at 68. His aspirin was withheld upon starting full anticoagulation and as mentioned will defer with Dr. Desai to consider re-prescribing this or not after he is off full anticoagulation. He also denied having any diabetes, although this has been documented in the past and hence on admission, his HbA1c was obtained which was found to be 6.8, which technically meets criteria for possible diabetes. However, his fasting glucose levels were no more than 126 or 127 and the highest being 120. Given his previous documentation saying that he is diabetic and since it can further affect decision making for future anticoagulation, he has been advised to undergo an oral glucose tolerance test as an outpatient and we will defer with primary care physician and Dr. Desai on followup to reconsider his CHADS- VASc score then. Without diabetes, his CHADS-VASc score is only 1 and if he is diabetic, it will be 2 and hence, we will defer followup with the patient's PCP and Dr. eDsai. 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 If the test confirms that he has diabetes, he was asked to discuss this with his paint technician given his AFib to determine if he will need further anticoagulation after a month. He was informed that his stress test shows intermediate risk and possible lateral ischemia; however, he was advised to follow up with Dr. Desai to determine whether he will need to have some recatheterization sometime in the future and to determine whether he is RCA predominant. He was advised that if his symptoms resume or develop new ones or feel unwell for any reason, to call his PCP and if his PCP cannot entertain him due to scheduling issues alone, to call [facility] if the issue is considered nonemergent. He was advised to call my office regarding any questions, concerns, or further clarifications regarding his discharge plans and prescriptions and to take his medications as prescribed. REVIEW OF SYSTEMS: The patient currently denies any recent headaches, dizziness , fevers, chills, nausea, vomiting, chest pain, shortness of breath, increased cough or sputum production, abdominal pain, diarrhea, constipation, pain and/or increased frequency of urination, myalgias or arthralgias, throat pain, or new skin lesions. The rest of the 14-point review of systems is otherwise unremarkable. PHYSICAL EXAMINATION: Temperature of 97.8 degrees Fahrenheit, 66 beats per minute heart rate, 16 per minute heart rate, saturating at 95% on room air, blood pressure of 130/65. General Appearance: The patient is awake, alert, and oriented x3, not in acute distress. HEENT: Normocephalic, atraumatic. PERRLA. Extraocular muscles intact. Negative for icterus. Moist oral mucosa. Negative throat erythema. Neck is soft, supple with no cervical lymphadenopathy. No JVD. Heart: S1, S2 within normal limits. Regular rate and rhythm. No murmurs, rubs, and gallops. Chest: Clear to auscultation bilaterally. Good air entry. No wheezes, rales, or rhonchi. Abdomen is soft, nondistended, nontender. Normoactive bowel sounds x4 quadrants. Extremities: No cyanosis, clubbing, or edema. Psychiatric: No active psychosis, depression, suicidal or homicidal ideation. Skin is warm to touch. TIME SPENT: The total time spent evaluating the patient, reviewing pertinent data, and appropriate documentation is greater than 30 minutes. [id number]/[facility] #: [id number] MTDD
== END 2018-07-04 13:44 | disposition home or self-care (01) ==
LOC: ED 14:15 → MEDTELE 18:17
PROVIDERS: ADMIT Student in an Organized Health Care Education/Training Program; ATTEND Student in an Organized Health Care Education/Training Program
DX: I48.91 Unspecified atrial fibrillation (principal); I25.10 Atherosclerotic heart disease of native coronary artery without angina pectoris; I10 Essential (primary) hypertension; E78.5 Hyperlipidemia, unspecified; R06.02 Shortness of breath; R74.8 Abnormal levels of other serum enzymes; F32.9 Major depressive disorder, single episode, unspecified; E66.9 Obesity, unspecified; F43.10 Post-traumatic stress disorder, unspecified; M47.897 Other spondylosis, lumbosacral region; Z87.891 Personal history of nicotine dependence
CPT/HCPCS: 36415; 71045; 78452; 80053; 80061; 80320; 82550; 82553; 83036; 83735; 84100; 84439; 84443; 84484; 85025; 85379; 90471; 90686; 90732; 92960; 93005; 93017; 93306; 93312; 93325; 96372; 96374; 96375; 99156; 99157; 99285; A9270-GY; A9502; C8929; G0009; G0378; G0480; J0280; J1650; J2250; J2310; J2785; J3010

== ENCOUNTER 2018-10-03 09:21 | Inpatient (IN) | payer MEDICARE ==
[2018-10-03] MEDS ORDERED: Nitroglycerin TAB 0.4 MG* 0.4 MG TAB ONE (09:40)
[2018-10-03] MEDS ORDERED: Aspirin 81 mg CHEW TAB* 81 MG TAB.CHEW ONE (09:40)
[2018-10-03] MEDS ORDERED: Aspirin 81 mg CHEW TAB* 81 MG TAB.CHEW PO ONE (09:41)
[2018-10-03] MEDS ORDERED: Nitroglycerin TAB 0.4 MG* 0.4 MG TAB SL ONE ×2 (09:41→10:03)
--- NOTE | 2018-10-03 09:52 | ED ---
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 He had 4 stents placed in January at [place]. He says the pain radiates to his hands bilaterally. 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 He also reports mild SOB. - History of Current Complaint Chief Complaint: EDChestPainROMI Hx Obtained From: Patient Onset/Duration: Started Minutes Ago, Started Hours Ago Timing: Constant Initial Severity: Moderate Current Severity: Moderate Pain Intensity: 7 Pain Scale Used: 0-10 Numeric Chest Pain Location: Discrete at:, Upper Sternal Chest Pain Radiates: Yes Chest Pain Radiates To:: Other - Hands bilaterally Character: Dyspnea at Rest Associated Signs and Symptoms: Positive: Chest Pain, Shortness of Breath - Allergy/Home Medications Allergies/Adverse Reactions: Allergies Allergy/AdvReac Type Severity Reaction Status Date / Time No Known Allergies Allergy Verified 10/03/18 09:26 Home Medications: Home Medications ALPRAZolam [Alprazolam] 0.5 mg PO QID PRN 10/03/18 [History Confirmed 10/03/18] Apixaban* [Eliquis*] 5 mg PO BID 10/03/18 [History Confirmed 10/03/18] Gabapentin 300 mg PO TID 10/03/18 [History Confirmed 10/03/18] Lisinopril 20 mg PO BID 10/03/18 [History Confirmed 10/03/18] Metoprolol Succinate XL TAB* [Toprol XL TAB*] 100 mg PO BID 10/03/18 [History Confirmed 10/03/18] Nitroglycerin 0.4 mg PO SEE INSTRUCTIONS PRN 10/03/18 [History Confirmed ] Oxycodone IR 10 MG(NF) 10 mg PO Q8H PRN 10/03/18 [History Confirmed 10/03/18] Prasugrel HCl 10 mg PO DAILY 10/03/18 [History Confirmed 10/03/18] Rosuvastatin Calcium 40 mg PO DAILY 10/03/18 [History Confirmed 10/03/18] dilTIAZem HCl [Diltiazem 24Hr ER] 120 mg PO DAILY 10/03/18 [History Confirmed ] oxyCODONE SR TAB(*) [Oxycontin 40 mg (*)] 40 mg PO BID 10/03/18 [History Confirmed 10/03/18] PMH/Surg Hx/FS Hx/Imm Hx Endocrine/Hematology History: Denies: Hx Diabetes, Hx Thyroid Disease Cardiovascular History: Reports: Hx Angina, Hx Coronary Artery Disease, Hx Hypercholesterolemia, Hx Hypertension - ON MEDS Denies: Hx Myocardial Infarction, Hx Pacemaker/ICD Respiratory History: Denies: Hx Asthma, Hx Chronic Obstructive Pulmonary Disease (COPD) GI History: Reports: Hx Gastroesophageal Reflux Disease, Hx Hiatal Hernia Denies: Hx Ulcer Musculoskeletal History: Reports: Hx Arthritis, Hx Back Problems Sensory History: Reports: Other Sensory Impairments - 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 Denies: Hx Contacts or Glasses, Hx Deafness, Hx Hearing Aid Opthamlomology History: Reports: Other Sensory Impairments - 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 Denies: Hx Contacts or Glasses Neurological History: Reports: Hx Peripheral Neuropathy, Other Neuro Impairments /Disorders - neuropathy Psychiatric History: Reports: Hx Anxiety, Hx Attention Deficit Hyperactivity Disorder, Hx Depression, Hx Post Traumatic Stress Disorder Denies: Hx Panic Disorder - Cancer History Cancer Type, Location and Year: basal cell Hx Chemotherapy: No Hx Radiation Therapy: No - Surgical History Surgery Procedure, Year, and Place: CARDIAC STENT 2000 INFO IN PACS UNDER MRI TETRA STENT,. BASAL CELL - REMOVED FROM FACE. SPINAL STIMULATOR - ALL COMPONENTS HAVE BEEN REMOVED ABOUT - 4 YRS AGO - @ [facility] [place] Infectious Disease History: No Infectious Disease History: Reports: Hx Tuberculosis - positive Denies: Hx Clostridium Difficile, Hx Hepatitis, Hx Human Immunodeficiency Virus (HIV), Hx of Known/Suspected MRSA, Hx Shingles, Hx Known/Suspected VRE, Hx Known/Suspected VRSA, History Other Infectious Disease, Traveled Outside the [place] in Last 30 Days - Family History Known Family History: Positive: Cardiac Disease, Hypertension Negative: Diabetes - Social History Alcohol Use: Rare Hx Substance Use: No Substance Use Type: Reports: None Hx Tobacco Use: No Smoking Status (MU): Former Smoker Type: Cigarettes Length of Time of Smoking/Using Tobacco: 20 years Have You Smoked in the Last Year: No Review of Systems Positive: Chest Pain Positive: Shortness Of Breath All Other Systems Reviewed And Are Negative: Yes Physical Exam - Summary Physical Exam Summary: GENERAL: Patient is a well-developed and nourished M who is lying comfortable in the stretcher. Patient is not in any acute respiratory distress. HEAD AND FACE: Normocephalic EYES: PERRLA, EOMI x 2. EARS: Hearing grossly intact. MOUTH: Oropharynx within normal limits. NECK: Supple, trachea is midline, no adenopathy, no JVD, no carotid bruit. CHEST: Symmetric, no tenderness at palpation LUNGS: Clear to auscultation bilaterally. No wheezing or crackles. CVS: Regular rate and rhythm, S1 and S2 present, no murmurs or gallops appreciated. ABDOMEN: Soft, non-tender. Bowel sounds are normal. No abdominal abnormal pulsations. EXTREMITIES: Full ROM in all major joints, no edema, no cyanosis or clubbing. NEURO: Alert and oriented x 3. No acute neurological deficits. Speech is normal and follows commands. SKIN: Dry and warm Triage Information Reviewed: Yes Vital Signs On Initial Exam: Initial Vitals Temp Pulse Resp BP Pulse Ox 97.6 F 93 16 187/108 98 10/03/18 09:23 10/03/18 09:23 10/03/18 09:23 10/03/18 09:23 10/03/18 09:23 Vital Signs Reviewed: Yes Diagnostics - Vital Signs Vital Signs Temp Pulse Resp BP Pulse Ox 10/03/18 09:23 97.6 F 93 16 187/108 98 - Laboratory Result Diagrams: 10/04/18 04:52 10/04/18 04:52 Lab Statement: Any lab studies that have been ordered have been reviewed, and results considered in the medical decision making process. - Radiology CXR Radiology Interpretation Completed By: Radiologist Summary of Radiographic Findings: Cardiomegaly. No active cardiopulmonary disease. ED Provider has reviewed this report. 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 His chest pain resolved after he was given three rounds of nitroglycerin. CXR showed cardiomegaly and was unremarkable for active cardiopulmonary disease. Due to cardiopulmonary history and the presenting symptoms this patient will be admitted. Case discussed with hospitalist. Tamiko discussed results with patient. The patient agrees with this plan. - Diagnoses Provider Diagnoses: Chest pain - Provider Notifications Discussed Care Of Patient With: Maikel Rodriguez - Hospitalist Time Discussed With Above Provider: 11:08 Instructed by Provider To: Admit As Inpatient Discharge - Sign-Out/Discharge Documenting (check all that apply): Patient Departure - Admit - Discharge Plan Condition: Stable Disposition: ADMITTED TO [facility] - Billing Disposition and Condition Condition: STABLE Disposition: Admitted to [facility] - Attestation Statements Document Initiated by Eyal: Yes Documenting Scribe: Sly Fine Provider For Whom Eyal is Documenting (Include Credential): Haley Carrillo Scribe Attestation: Sly Morrison, poibed for Haley Carrillo on 10/04/18 at 1035. Scribe Documentation Reviewed: Yes Provider Attestation: The documentation as recorded by the Sly willett accurately reflects the service I personally performed and the decisions made by , Rona Carrillo Status of Scribe Document: Viewed
[2018-10-03 10:02] LABS: ABS Basophils 0 10^3/ul (0-0.2); ABS Eosinophils 0.1 10^3/ul (0-0.6); ABS Lymphocytes 0.9 10^3/ul (1.0-4.8); ABS Monocytes 0.6 10^3/ul (0-0.8); ABS Neutrophils 5.7 10^3/ul (1.5-7.7); ABS Nucleated RBC 0 10^3/ul; Eosinophil % 1.4 %; Hematocrit 39 % (42-52); Mean Corpuscular HGB Conc 33 g/dl (31-36); Mean Corpuscular Hemoglobin 29 pg (27-31); Mean Corpuscular Volume 89 fL (80-94); Mean Platelet Volume 7.8 fL (7.4-10.4); Nucleated Red Blood Cells % 0; Platelet Count 225 10^3/ul (150-450); Red Blood Count 4.44 10^6/ul (4.00-5.40); Red Cell Distribution Width 13 % (10.5-15); White Blood Count 7.3 10^3/ul (3.5-10.8)
[2018-10-03 10:11] LABS: Activated Partial Thrombo Time 35.3 seconds (26.0-36.3); INR 1.26 (0.77-1.02)
[2018-10-03 10:26] LABS: Albumin 3.9 g/dL (3.2-5.2); Albumin/Globulin Ratio 1.1 (1-3); BUN/Creatinine Ratio 19.2 (8-20); Calcium 9.2 mg/dL (8.6-10.3); EGFR Non-African American 99.9 (>60); Globulin 3.4 g/dL (2-4); Magnesium 1.9 mg/dL (1.9-2.7); Potassium 3.8 mmol/L (3.5-5.0); Total Bilirubin 0.4 mg/dL (0.2-1.0); Total Protein 7.3 g/dL (6.4-8.9)
[2018-10-03] MEDS ORDERED: Acetaminophen TAB* 325 MG PO PRN (11:41)
[2018-10-03] MEDS ORDERED: hydrALAZINE IV* 20 MG/ML VIAL IV SLOW PU PRN (12:06)
[2018-10-03] MEDS: Gabapentin CAP(*) 300 MG PO SCH ×2 (12:21→19:59)
[2018-10-03] MEDS: CMCS - Prasugrel (NF) 10 MG PO SCH (12:21)
[2018-10-03 12:23] LABS: Urine Appearance Clear; Urine Bilirubin Negative (Negative); Urine Blood Negative (Negative); Urine Color Straw; Urine Glucose Negative (Negative); Urine Ketones Negative (Negative); Urine Nitrite Negative (Negative); Urine Protein Negative (Negative); Urine Specific Gravity 1.005 (1.010-1.030); Urine Urobilinogen Negative (Negative)
--- NOTE | 2018-10-03 13:41 | HP ---
CC: Dr. Fernandez; Dr. Desai; Dr. Desir * HISTORY AND PHYSICAL: DATE OF ADMISSION: 10/03/18 PRIMARY CARE PROVIDER: Dr. Fernandez. PRIMARY CPAS: Dr. Desai. CONSULTING CPAS: Dr. Desir. MY ATTENDING PHYSICIAN WHILE IN THE HOSPITAL: Dr. Maikel Rodriguez * (report dictated by Luis Hernandez NP). CHIEF COMPLAINT: Chest pain. HISTORY OF PRESENT ILLNESS: Mr. Bradley is a 63-year-old male patient with a known history of hypertension, CAD, angina, AFib, hyperlipidemia, depression, lumbar spondylosis, history of skin cancer, prediabetes, and a history of small fiber neuropathy. He comes into the ED today stating that he has been having intermittent chest discomfort for the last several weeks. He says that at times it has been exertional and it has responded at times to [place] and he describes it as a sharp stabbing pain in the center of his chest. Today, he was getting ready to go to have breakfast with a friend, he was getting up, putting his clothes on and he started having that chest discomfort in the middle of his chest, described as sharp stabbing pain that went into both of his hands with no associated nausea, shortness of breath, diaphoresis. He said that the discomfort was not getting any better. He was driving to go have breakfast. It became more intense than it had been in the last month, so he immediately pulled over and turned around and came into the hospital. He took a nitro in the car. By the time he got here, the pain was going away and he is chest pain-free now. He says the pain started around 7:30 and went to about 8: 45 and it was constant, unrelenting in nature. He denies any recent trips or travel. Denies having any abdominal discomfort. No nausea, no vomiting. Denied having any recent fevers or chills. No leg pain, calf pain, or swelling. No abdominal pain. No recent URI symptoms. No headaches. No loss of consciousness and he had no palpitations or fluttering in his chest. He was concerned because he had the chest discomfort and he came into the hospital today. He was evaluated. EKG appeared to be stable, but he did have an elevated troponin at 0.04, albeit it was decreased from his previous troponin, but there was concern given his past medical history due to the chest pain and we were asked to evaluate for admission. PAST MEDICAL HISTORY: Significant for: 1. Hypertension. 2. CAD. 3. Angina. 4. Hyperlipidemia. 5. AFib. 6. Depression. 7. Lumbar spondylosis. 8. Skin cancer. 9. Prediabetes. PAST SURGICAL HISTORY: He has had heart catheterization x2. HOME MEDICATIONS: Again, he does have some discrepancy with his meds. He thinks he may have been taking an increased dose of Effient. We have clarified the dosing, he is on: 1. Metoprolol 100 mg p.o. b.i.d. 2. Lisinopril 20 mg p.o. b.i.d. 3. Crestor 40 mg daily. 4. Effient 10 mg daily. 5. Nitro 0.4 mg sublingual q.5 minutes p.r.n. chest pain. 6. Oxycodone SR 40 mg p.o. b.i.d. 7. Diltiazem 120 mg p.o. daily. 8. Oxycodone 10 mg every 8 hours as needed. 9. Gabapentin 300 mg p.o. t.i.d. 10. Eliquis 5 mg p.o. b.i.d. 11. Xanax 0.5 mg every 6 hours as needed for . ALLERGIES TO MEDICATIONS: Include no known drug allergies. FAMILY HISTORY: His mother at the age of 94 of CAD. Father had a history of CAD at the age of 85, and . SOCIAL HISTORY: He is a former smoker, he quit over 20 years ago. He does not drink alcohol. Surrogate decision maker is his . He is retired. REVIEW OF SYSTEMS: There is no documented fever. He denied having any significant weight change. There is no double vision. He denied having any ear discharge. There is no rhinorrhea. There is no sore throat. No thyroid enlargement. There is chest pain per my HPI. There is no orthopnea. There is no nocturnal dyspnea. He denies having any abdominal pain. There was no nausea , no vomiting. No dysuria, no frequency. There was no seizure. There was no loss of consciousness. No pruritus and no skin ulcerations. Review of 14 systems was completed, all others negative. PHYSICAL EXAMINATION GENERAL: At this time, Mr. Bradley is a 63-year-old male patient. He is morbidly obese. He is sitting in the ED stretcher. He does not appear to be in any acute distress. VITAL SIGNS: Blood pressure 176/70 with a pulse of 75, respirations were 18, O2 sat 95%, temperature 97.6. HEENT: Head: Atraumatic and normocephalic. Eyes: EOMs are intact. Sclerae anicteric and not pale. Throat: Oral mucosa appears to be moist. No oropharyngeal erythema. NECK: Supple. LUNGS: Clear to auscultation bilaterally. There are no wheezes, rales, or rhonchi. HEART: Sounds S1, S2. Irregular rate and rhythm. No murmurs, rubs, or gallops. ABDOMEN: Soft. It was flat. It was nontender. Bowel sounds were present. EXTREMITIES: Pulses were 2+ throughout. He is moving all 4 extremities with 5/ 5 strength. NEUROLOGIC: He is awake. He is alert. He is oriented x3. Tongue midline. Spooler were equal. He had no gross focal deficits. SKIN: Grossly intact. DIAGNOSTIC STUDIES/LAB DATA: WBC 7.3, RBC of 4.44, hemoglobin of 13.0, hematocrit 39, platelet count of 225. INR 1.26, PTT of 35.3. Sodium 141, potassium 3.8, chloride 102, bicarb 32, BUN 15, creatinine of 0.78, glucose 131 , lactic 1.6, calcium 9.2, mag 1.9. Total bili 0.4, AST 17, ALT 18, alk phos 63. CK 4.5, troponin 0.04, BNP 96. Albumin of 3.9. He had an EKG obtained today, which shows a normal sinus rhythm with a rate of 94 with a right bundle branch block and left anterior fascicular block. When you review it to the previous EKG, it is similar with exception he was in AFib previously, but he did have the right bundle branch block previously. Again, when you look to previous EKG after cardioversion, again it appears to be similar. He had an abnormal stress test previously as well, which showed moderate reversible perfusion defect in the lateral wall suggestive of ischemia. Previous troponins peaked at 0.65. He did have a previous cardiology consult, which was reviewed. ASSESSMENT AND PLAN: Mr. Bradley is a 63-year-old male patient with a complex medical history, coming into the ED today with complaints of chest pain in the setting of now having an elevated troponin. He will be admitted under observation status for: 1. Chest pain. It is concerning this could represent angina and the fact that he has been having it with exertion. I did touch base with Dr. Desir. Fortunately, he is chest pain-free now. The EKG does not show active signs of ischemia. His troponin is 0.04. My plan would be to get records from [place], last cath report and his followup with Dr. Desai. I will cycle his troponins. He is on Effient. He is on a beta-kristen. He is on statin. He is on Eliquis. Continuing these meds. If his troponins increase and the chest pain comes back, I certainly will have low threshold for nitroglycerin. I do note his blood pressure was 170. I have ordered p.r.n. hydralazine to try to get that down. We will continue to follow. He did not have the Effient last night, so I am giving him a dose as soon as possible now. I have ordered that in the ER. I have instructed the nursing staff as well. We will go ahead and continue to monitor him, cycle his troponins, place him on telemetry and repeat an echo and Cardiology will be evaluating. 2. Hypertension. Again, I would like better control. He was 176. I have ordered p.r.n. hydralazine. We will continue his meds. We will titrate if needed. 3. Coronary artery disease. Again, he is on beta-kristen, statin, Effient, and Eliquis. Aspirin was held previously. He did receive aspirin today. It was held because he was on Eliquis along with Effient and he was 6 months out from PCI and the aspirin was stopped with his last hospital stay. I did touch base with our cardiology today and they felt that Effient and Eliquis are sufficient for now. 4. Atrial fibrillation. Continue meds as prescribed. He is a sinus rhythm. 5. Hyperlipidemia. Continue statin therapy. 6. Depression. Continue supportive care. 7. History of neuropathy and lumbar spondylosis. Continue meds as prescribed. 8. Prediabetes. We will follow. He follows with his PCP. 9. DVT prophylaxis: On Eliquis. 10. Code status: Full code. 11. Fluids, electrolytes, and nutrition: He can have a heart-healthy diet. TIME SPENT: Time spent on the admission was 60 minutes, greater than half of the time was spent [id number] with the patient obtaining my history and physical, other half of the time was spent going over the plan of care with the patient and implementing plan of care. I did discuss the plan of care with my attending, Dr. Rodriguez, and he is in agreement. LUIS HERNANDEZ, LEARNING SUPPORT SPECIALIST [id number]/[facility] #: [id number] HECTOR
[2018-10-03] MEDS: Nitroglycerin 2% OINT* 1 GM PAK TOPICAL SCH (14:30)
[2018-10-03] MEDS: ALPRAZolam TAB* 0.5 MG PO PRN ×2 (14:33→21:31)
--- NOTE | 2018-10-03 18:31 | PN ---
Hospitalist Progress Note Date of Service: 10/03/18 noted increase in troponins to 1.03. Patient without chest pain ekg stable will continue to monitor. echo ordered will trend trops to peak. cardiology following
--- NOTE | 2018-10-03 19:32 | CONS ---
CC: Hospitalist Service; Dr. Desir; Dr. Desai CARDIOLOGY CONSULT: DATE OF CONSULT: 10/03/18 HISTORY OF PRESENT ILLNESS: I was asked by hospitalist service to see this 63-year- old male patient who presented to the hospital with an episode of symptoms of chest pain this morning. The patient h as known history of extensive coronary artery disease and history of angioplasty and stenting. The l ast one was, according to the patient, 4 stents in January 2018 at [place]. In June 2018, he was hospit alized at [facility] for NSTEMI ruled in with positive troponin. He had also AFib at that time. He had YAZAN cardioversion at that time. He had nuclear Myoview stress test that was abnormal in June and it w as reported that his nuclear showed moderate reversible region in the lateral wall of ischemia, but a pparently, a cardiac cath was not performed and to be discussed as an outpatient with Dr. Desai. The patient said this morning, he had an episode of symptoms of chest pain. He had to take extra s ublingual nitroglycerin and did actually take the pain away. He presented to the emergency room. He had initially troponin of 0.04, but did go up to 0.31. He is chest pain free at the moment. He does have history of hypertension and also hyperlipidemia on medical treatment and he is a prediabetic, b ut he is not on diabetic medications. He gives no nausea, no vomiting, no orthopnea, no palpitations , no tachycardia, no hematochezia, no skin rash, no abdominal pain, no syncope, no swelling of the lo wer extremities, no fever, no chills, no pneumonia appreciated. His review of all other systems esse ntially is negative. PAST MEDICAL HISTORY: Extensive history of coronary artery disease, angioplasty and stenting to the RCA; history of systemic arterial hypertension; hyperlipidemia; prediabetes; obesity; and also lumbos acral spondylosis; basal cell skin cancer surgery in 2001; and also angioplasty. MEDICATIONS: As an inpatient include: 1. Tylenol 650 mg p.o. q.4 hours. 2. Lipitor 80 mg daily. 3. Diltiazem 120 mg daily. 4. Neurontin 300 mg t.i.d. 5. Heparin. 6. Hydralazine. 7. Lisinopril 20 mg b.i.d. 8. Metoprolol 100 mg b.i.d. 9. Nitro 2% 0.5-inch q.12 hours. 10. OxyContin 40 mg p.o. b.i.d. 11. Effient 10 mg daily. ALLERGIES: HYPAQUE and he is allergic to SERZONE. FAMILY HISTORY: Had family history in his father as well as his mother with history of coronary madi ry disease. SOCIAL HISTORY: He used to smoke, he quit in 1997. No history of illicit drug use. No alcohol abus e. 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 REVIEW OF SYSTEMS: His review of all other systems essentially is negative. PHYSICAL EXAM: On exam, he is awake, alert, and oriented. He had no symptoms of chest pain. His vi tals, blood pressure 176/76, pulse is 76, temperature 99.1, respiratory rate 18. Head and Neck Exam: Normocephalic, atraumatic. Head, Ear, Nose, and Throat: Essentially benign. Neck: Supple. JVP is not elevated. No carotid bruit. No masses in the neck is appreciated. Chest is clear to auscult ation. No rales, no wheezes, no added sounds appreciated. Heart: Normal, S1 and S2. No added soun ds, no gallops, no rubs. Abdomen: Benign, positive bowel sounds. Extremities: No edema. No cyano sis. No clubbing. Skin exam is normal. Psych: Normal affect and mood. LEAD SHIPPER: No focal deficits sona reciated. DIAGNOSTIC STUDIES/LAB DATA: His EKG showed him to be sinus rhythm, left atrial abnormality, right b undle-branch block, left anterior fascicular block. No definite ST elevation. No significant change s from previous EKG. His labs showed the following: His white blood cell is 7.3, hemoglobin 13, hematocrit 39, platelets 225. Chemistry: Sodium 141, potassium at 3.8, BUN 15, creatinine 0.78. LFTs normal. Troponin 0.04 , then 0.31. BNP 96. IMPRESSION: The patient is a 63-year-old male patient with: 1. Presentation with acute coronary syndrome. 2. The patient with known history of coronary artery disease, multiple interventions, angioplasty an d stenting in the past. 3. He had NSTEMI on June 2018 at [facility]. 4. Nuclear Myoview stress test done then showed moderate size of reversible ischemia over the latera l wall. 5. History of atrial fibrillation, YAZAN guided cardioversion in June 2018. 6. Systemic arterial hypertension. 7. Hyperlipidemia. 8. Obesity. 9. Prediabetes. 10. Abnormal EKG as described. PLAN: The patient is currently chest pain free. I have discussed him at length with hospitalist Luis yung. He is to be monitored very closely with serial EKGs and troponins as you are al ready doing. Continue his aspirin, Lipitor, heparin, Prinivil, Toprol, nitro if needed, Effient as y ou are already doing. This patient given his recurrent episode of chest pain and just in 3 months ag ain ruled in for NSTEMI, I do recommend to proceed with a cardiac catheterization to evaluate his cor onary anatomy. He did have moderate reversible ischemia of the lateral wall by nuclear stress test d one in June 2018. I discussed this at length with the patient. He is willing. He is considering his options. He might have this done at [facility] [place]. He said he had this done all through [facility] in [place], but definitely for now, we will continue to observe him closely for any recurrence of symptoms of chest pain or significant elevated troponin or significant EKG changes. We will follow him closely. We will make further recommendations accordingly. We will follow up on transthoracic echo for his left ventricular systolic function. I answered all his conc erns and questions up to his satisfaction. TIME SPENT: More than half of at least 65-plus minutes was [id number] in the education and employee counselor ing and making recommendations. [id number]/[facility] #: [id number]
[2018-10-03] MEDS: Metoprolol Succinate XL TAB* 100 MG PO SCH (19:59)
[2018-10-03] MEDS: Lisinopril TAB* 10 MG PO SCH (19:59)
[2018-10-03] MEDS: oxyCODONE SR TAB(*) 40 MG TAB.SR PO SCH (20:00)
[2018-10-03] MEDS ORDERED: Apixaban* 5 MG TAB PO SCH (21:00)
[2018-10-03] MEDS ORDERED: Heparin DRIP 25,000 UNITS(*) 25,000 UNITS/500 ML BAG IV SCH (21:00)
[2018-10-03] MEDS: Heparin VIAL(*) 5000 UNITS/ML VIAL (FIVE THOUSAND) IV SCH (21:30)
[2018-10-04] MEDS: Heparin VIAL(*) 5000 UNITS/ML VIAL (FIVE THOUSAND) IV SCH ×2 (03:34→23:28)
[2018-10-04 05:32] LABS: ABS Basophils 0 10^3/ul (0-0.2); ABS Eosinophils 0.2 10^3/ul (0-0.6); ABS Lymphocytes 1.7 10^3/ul (1.0-4.8); ABS Monocytes 0.7 10^3/ul (0-0.8); ABS Neutrophils 2.9 10^3/ul (1.5-7.7); ABS Nucleated RBC 0 10^3/ul; Hematocrit 37 % (42-52); Hemoglobin 12.4 g/dl (14.0-18.0); Lymphocyte % 30.2 %; Mean Corpuscular HGB Conc 33 g/dl (31-36); Mean Corpuscular Hemoglobin 30 pg (27-31); Mean Corpuscular Volume 89 fL (80-94); Mean Platelet Volume 8.1 fL (7.4-10.4); Nucleated Red Blood Cells % 0.1; Platelet Count 171 10^3/ul (150-450); Red Blood Count 4.14 10^6/ul (4.00-5.40); Red Cell Distribution Width 13 % (10.5-15); White Blood Count 5.6 10^3/ul (3.5-10.8)
[2018-10-04 05:49] LABS: Calcium 8.9 mg/dL (8.6-10.3)
[2018-10-04 05:54] LABS: BUN/Creatinine Ratio 17.6 (8-20); EGFR Non-African American 106.2 (>60)
[2018-10-04] MEDS: oxyCODONE TAB* 5 MG TAB PO PRN ×2 (06:06→19:42)
[2018-10-04] MEDS ORDERED: Perflutren Lipid Microsphere* 3 ML VIAL ONE (08:01)
[2018-10-04] MEDS: Lisinopril TAB* 10 MG PO SCH ×2 (09:52→21:01)
[2018-10-04] MEDS: Atorvastatin* 80 MG TAB PO SCH (09:52)
[2018-10-04] MEDS: Gabapentin CAP(*) 300 MG PO SCH ×3 (09:52→21:01)
[2018-10-04] MEDS: oxyCODONE SR TAB(*) 40 MG TAB.SR PO SCH ×2 (09:53→22:43)
[2018-10-04] MEDS: Metoprolol Succinate XL TAB* 100 MG PO SCH ×2 (09:54→21:01)
[2018-10-04] MEDS: Aspirin EC TAB* 81 MG TAB.EC PO SCH (09:54)
[2018-10-04] MEDS: Nitroglycerin 2% OINT* 1 GM PAK TOPICAL SCH ×2 (09:55→15:35)
[2018-10-04] MEDS: CMCS - Prasugrel (NF) 10 MG PO SCH (09:55)
--- NOTE | 2018-10-04 11:25 | ECHO ---
Patient: KATHERINE WATKINS [facility] Rec#: [id number] : 1955 Date: 10/04/2018 Age: 63y Height: 180 cm / 70.9 in Weight: 123 kg / 271.1 lbs Sex: M BSA: 2.4 Room#: 431 Admit Date#: 10/03/2018 Type: Inpatient Referring: Luis Hernandez NP Reading: Lavern Desir MD Editorial Specialist: Bela Perez RDCS CC: Denver Desai CC: Louis Fernandez MD Transthoracic Echocardiogram Indication: CP BP: 156/85 HR: 65 Rhythm: NSR Findings History: CAD,prior PCI to RCA,HTN,HLD,obesity. Definity used to enhance images. Technical Comments: The study is technically limited due to patient body habitus. Left Ventricle: The left ventricular chamber size is normal. Mild concentric left ventricular hypertrophy is observed. Global left ventricular wall motion and contractility are within normal limits. There is normal left ventricular systolic function. The estimated ejection fraction is 50-55%. With subtle relative inferior and anterior wall hypokinesis. Abnormal left ventricular diastolic function is observed. Left Atrium: The left atrium is mildly dilated. Right Ventricle: The right ventricular cavity size is normal. The right ventricular global systolic function is normal. Right Atrium: The right atrium is mildly dilated. Aortic Valve: The aortic valve is trileaflet. There is no evidence of aortic regurgitation. There is no evidence of aortic stenosis. Mitral Valve: The mitral valve leaflets are mildly thickened. There is no evidence of mitral regurgitation. There is no evidence of mitral stenosis. Tricuspid Valve: The tricuspid valve leaflets are normal. There is no evidence of tricuspid valve regurgitation. There is no tricuspid stenosis. Pulmonic Valve: The pulmonic valve appears normal. There is no evidence of pulmonic regurgitation. There is no pulmonic stenosis. Pericardium: A pericardial fat pad is visualized. Aorta: There is mild dilatation of the ascending aorta. The aortic arch is not well visualized. There is mild dilatation of the aortic root. Pulmonary Artery: The main pulmonary artery appears normal. Venous: The venous system is not well visualized. Contrast: Definity was used to optimize study. A total of 3 ml used. Intravenous contrast was used to enhance endocardial border definition. Summary: There are changes noted when compared to the previous study done on LV EF now 50-55% instead of 55-60% then.Dilated thoracic aorta is stable. Conclusions The left ventricular chamber size is normal. Mild concentric left ventricular hypertrophy is observed. The estimated ejection fraction is 50-55%. With subtle relative inferior and anterior wall hypokinesis. The left atrium is mildly dilated. The right atrium is mildly dilated. There is mild dilatation of the ascending aorta. There is mild dilatation of the aortic root. Measurements Name Value Normal Range RVIDd (AP) 2D 3 cm (0.9 - 2.6) RVDdMajor (2D) 2.6 cm (2.2 - 4.4) RAd ISD 4CH 5.4 cm (3.4 - 4.9) RA (A4C)W 3.3 cm (2.9 - 4.6) IVSd (2D) 1.1 cm (0.6 - 1) LVPWd (2D) 1.2 cm (0.6 - 1) LVIDd (2D) 5.4 cm (3.6 - 5.4) LVIDs (2D) 3.9 cm - LV FS (2D) 28 % (25 - 45) Aortic Annulus 2.3 cm (1.4 - 2.6) Ao root diameter (2D) 3.7 cm (2.1 - 3.5) Ascending Ao 3.7 cm (2.1 - 3.4) LA dimension (AP) 2D 3.9 cm (2.3 - 3.8) LAd ISD 4CH 6.9 cm (2.9 - 5.3) LA ISD 4CH W 4.8 cm (2.5 - 4.5) Name Value Normal Range LA ESV SP 4CH (A/L) 21 ml - LA ESV SP 2CH (A/L) 33 ml - LA ESV BP (A/L) index 29 ml/m2 - Name Value Normal Range MV E-wave Vmax 0.9 m/sec - MV deceleration time 285 msec - MV A-wave Vmax 1.2 m/sec - MV E:A ratio 0.7 ratio - LV septal e' Vmax 0.5 m/sec - Name Value Normal Range AV Vmax 1.6 m/sec - AV VTI 38 cm - AV peak gradient 10 mmHg - AV mean gradient 5 mmHg - LVOT Vmax 1 m/sec - LVOT VTI 27 cm - LVOT peak gradient 4 mmHg - LVOT mean gradient 2 mmHg - Name Value Normal Range PV Vmax 0.7 m/sec - PV peak gradient 2 mmHg -
[2018-10-04] MEDS: Diltiazem CD CAP* 120 MG PO SCH (12:34)
--- NOTE | 2018-10-04 15:09 | PN ---
Subjective Date of Service: 10/04/18 Interval History: Mr. Bradley is feeling better today. He has not had any further chest pain since admission. He is agreeable to a cardiac cath today, but still somewhat hesitant because all of his previous cardiac workups have been at [facility]. He is unhappy with the food here. He denies SOB, N/V, dizziness. Nursing reports that he has been very anxious. Family History: Unchanged from Admission Social History: Unchanged from Admission Past Medical History: Unchanged from Admission Objective Active Medications: Acetaminophen (Tylenol Tab*) 650 mg PO Q4H PRN FEVER/PAIN Alprazolam (Xanax Tab*) 0.5 mg PO QID PRN ANXIETY Aspirin (Aspirin Ec Tab*) 81 mg PO DAILY [facility] Atorvastatin Calcium (Lipitor*) 80 mg PO DAILY [facility] Diltiazem HCl (Cardizem Cd Cap*) 120 mg PO DAILY [facility]; Protocol Gabapentin (Neurontin Cap(*)) 300 mg PO TID [facility] Heparin Sodium (Porcine) (Heparin Vial(*)) 0 units IV .PER PROTOCOL MALENA Hydralazine HCl (Apresoline Iv*) 5 mg IV SLOW PU Q6H PRN BLOOD PRESSURE Heparin Sodium/Dextrose (Heparin Drip 25,000 Units(*)) 25,000 units in 500 mls @ 0 mls/hr IV PER RATE [facility]; Protocol Lisinopril (Prinivil Tab*) 20 mg PO BID [facility] Metoprolol Succinate (Toprol Xl Tab*) 100 mg PO BID [facility] Nitroglycerin (Nitroglycerin 2% Oint*) 0.5 inch TOPICAL 0800,1400 [facility]; Protocol Oxycodone HCl (Roxycodone Tab*) 10 mg PO Q8H PRN PAIN Oxycodone HCl (Oxycontin(*)) 40 mg PO BID [facility] Prasugrel (Effient (Nf)) 10 mg PO DAILY [facility] Vital Signs - 8 hr 10/04/18 10/04/18 10/04/18 07:13 08:00 09:52 Temperature 97.6 F Pulse Rate 59 Respiratory 20 16 16 Rate Blood Pressure 155/70 (mmHg) O2 Sat by Pulse 97 Oximetry 10/04/18 10/04/18 10/04/18 09:53 11:30 12:35 Temperature 97.9 F Pulse Rate 65 Respiratory 16 20 16 Rate Blood Pressure 158/68 (mmHg) O2 Sat by Pulse 97 Oximetry Oxygen Devices in Use Now: None Appearance: Middle-aged male sitting in chair in NAD Eyes: No Scleral Icterus Ears/Nose/Mouth/Throat: Mucous Membranes Moist Neck: NL Appearance and Movements; NL JVP, Trachea Midline Respiratory: Symmetrical Chest Expansion and Respiratory Effort, Clear to Auscultation Cardiovascular: NL Sounds; No Murmurs; No JVD, RRR Abdominal: NL Sounds; No Tenderness; No Distention Extremities: No Edema Skin: No Rash or Ulcers Neurological: Alert and Oriented x 3 Lines/Tubes/Other Access: Clean, Dry and Intact Peripheral IV Nutrition: Taking PO's Result Diagrams: 10/04/18 04:52 10/04/18 04:52 Assess/Plan/Problems-Billing Assessment: Mr. Bradley is a 63 yo M with PMH of afib (s/p cardioversion), HTN, angina, and HLD; who had a cardiac cath in January 2018 with 4 stents placed, followed by an NSTEMI in June 2018; who now presented to the ED with c/o intermittent CP for 3 weeks and was found to have elevated troponins. - Patient Problems (1) NSTEMI (non-ST elevated myocardial infarction) Code(s): I21.4 - NON-ST ELEVATION (NSTEMI) MYOCARDIAL INFARCTION Comment: - Intermittent chest pain for 3 weeks, relieved by nitro - History of cardiac cath in 2017 with 4 stents placed; awaiting these records from [facility] - Troponin peaked at 1.21; no EKG changes - Echo shows EF 50-55%, subtle inferior and anterior wall hypokinesis - Appreciate Cardiology consult; plan for cardiac cath tomorrow - NPO after midnight - Continue heparin drip, metoprolol, atorvastatin, Effient, nitro, aspirin (2) HTN (hypertension) Code(s): I10 - ESSENTIAL (PRIMARY) HYPERTENSION Comment: - SBP elevated on admission, resolved with nitro; SBP now 150s - Continue metoprolol, diltiazem, lisinopril (3) Atrial fibrillation Code(s): I48.91 - UNSPECIFIED ATRIAL FIBRILLATION Comment: - S/p cardioversion in June 2018, remains in NSR - Holding Eliquis for cath - Continue metoprolol, diltiazem (4) Hyperlipidemia Code(s): E78.5 - HYPERLIPIDEMIA, UNSPECIFIED Comment: - Will check lipids in the morning - Continue atorvastatin (5) Prediabetes Code(s): R73.03 - PREDIABETES Comment: - Hgb A1c in June was 6.8%; will recheck today (6) DVT prophylaxis Comment: - Heparin gtt (7) Full code status Code(s): Z78.9 - OTHER SPECIFIED HEALTH STATUS Comment: Status and Disposition: Observation for NSTEMI. Plan for cardiac cath tomorrow. Anticipate d/c home when medically stable. Attending: Khai Wesley
[2018-10-04] MEDS: ALPRAZolam TAB* 0.5 MG PO PRN ×2 (17:08→23:27)
[2018-10-05] MEDS: ALPRAZolam TAB* 0.5 MG PO PRN ×2 (04:54→22:14)
[2018-10-05 05:53] LABS: ABS Basophils 0 10^3/ul (0-0.2); ABS Eosinophils 0.2 10^3/ul (0-0.6); ABS Lymphocytes 1.6 10^3/ul (1.0-4.8); ABS Monocytes 0.6 10^3/ul (0-0.8); ABS Neutrophils 4.1 10^3/ul (1.5-7.7); ABS Nucleated RBC 0 10^3/ul; Eosinophil % 3.3 %; Hematocrit 41 % (42-52); Hemoglobin 13.3 g/dl (14.0-18.0); Lymphocyte % 24.5 %; Mean Corpuscular HGB Conc 33 g/dl (31-36); Mean Corpuscular Hemoglobin 29 pg (27-31); Mean Corpuscular Volume 90 fL (80-94); Nucleated Red Blood Cells % 0; Platelet Count 226 10^3/ul (150-450); Red Blood Count 4.54 10^6/ul (4.00-5.40); Red Cell Distribution Width 13 % (10.5-15); White Blood Count 6.5 10^3/ul (3.5-10.8)
[2018-10-05] MEDS: oxyCODONE TAB* 5 MG TAB PO PRN (05:58)
[2018-10-05 06:08] LABS: BUN/Creatinine Ratio 16.3 (8-20); Calcium 9.5 mg/dL (8.6-10.3); EGFR Non-African American 89.2 (>60); HDL Cholesterol 36.4 mg/dL; Potassium 3.8 mmol/L (3.5-5.0)
[2018-10-05 06:12] LABS: Activated Partial Thrombo Time 70.2 seconds (26.0-36.3); INR 0.99 (0.77-1.02)
[2018-10-05] MEDS: Atorvastatin* 80 MG TAB PO SCH (09:36)
[2018-10-05] MEDS: Metoprolol Succinate XL TAB* 100 MG PO SCH ×2 (09:36→21:09)
[2018-10-05] MEDS: Diltiazem CD CAP* 120 MG PO SCH (09:36)
[2018-10-05] MEDS: oxyCODONE SR TAB(*) 40 MG TAB.SR PO SCH ×2 (09:37→21:09)
[2018-10-05] MEDS: Aspirin EC TAB* 81 MG TAB.EC PO SCH (09:37)
[2018-10-05] MEDS: Gabapentin CAP(*) 300 MG PO SCH ×3 (09:37→21:10)
[2018-10-05] MEDS: Lisinopril TAB* 10 MG PO SCH ×2 (09:38→21:09)
[2018-10-05] MEDS: Nitroglycerin 2% OINT* 1 GM PAK TOPICAL SCH ×2 (09:40→16:00)
[2018-10-05] MEDS: CMCS - Prasugrel (NF) 10 MG PO SCH (09:40)
--- NOTE | 2018-10-05 11:58 | PN ---
Subjective Date of Service: 10/05/18 Interval History: Mr. Bradley is feeling fine this morning. He is still hesitant to have a cath here, but is agreeable as he understands insurance would not pay for transfer to [facility]. He is frustrated that he does not know the timeline of events today. He denies any further chest pain. Denies SOB, N/V. Has been ambulating independently. Family History: Unchanged from Admission Social History: Unchanged from Admission Past Medical History: Unchanged from Admission Objective Active Medications: Acetaminophen (Tylenol Tab*) 650 mg PO Q4H PRN FEVER/PAIN Alprazolam (Xanax Tab*) 0.5 mg PO QID PRN ANXIETY Aspirin (Aspirin Ec Tab*) 81 mg PO DAILY [facility] Atorvastatin Calcium (Lipitor*) 80 mg PO DAILY [facility] Diltiazem HCl (Cardizem Cd Cap*) 120 mg PO DAILY [facility]; Protocol Gabapentin (Neurontin Cap(*)) 300 mg PO TID [facility] Heparin Sodium (Porcine) (Heparin Vial(*)) 0 units IV .PER PROTOCOL [facility] Hydralazine HCl (Apresoline Iv*) 5 mg IV SLOW PU Q6H PRN BLOOD PRESSURE Heparin Sodium/Dextrose (Heparin Drip 25,000 Units(*)) 25,000 units in 500 mls @ 0 mls/hr IV PER RATE [facility]; Protocol Lisinopril (Prinivil Tab*) 20 mg PO BID [facility] Metoprolol Succinate (Toprol Xl Tab*) 100 mg PO BID [facility] Nitroglycerin (Nitroglycerin 2% Oint*) 0.5 inch TOPICAL 0800,1400 [facility]; Protocol Oxycodone HCl (Roxycodone Tab*) 10 mg PO Q8H PRN PAIN Oxycodone HCl (Oxycontin(*)) 40 mg PO BID [facility] Prasugrel (Effient (Nf)) 10 mg PO DAILY [facility] Vital Signs - 8 hr 10/05/18 10/05/18 10/05/18 04:12 04:54 05:58 Temperature 98.1 F Pulse Rate 72 Respiratory 24 24 20 Rate Blood Pressure 184/92 (mmHg) O2 Sat by Pulse 97 Oximetry 10/05/18 10/05/18 10/05/18 07:22 08:00 09:35 Temperature 97.5 F Pulse Rate 70 Respiratory 16 18 18 Rate Blood Pressure 183/83 (mmHg) O2 Sat by Pulse 99 Oximetry Oxygen Devices in Use Now: None Appearance: Middle-aged male sitting in bed in NAD Eyes: No Scleral Icterus Ears/Nose/Mouth/Throat: Mucous Membranes Moist Neck: NL Appearance and Movements; NL JVP, Trachea Midline Respiratory: Symmetrical Chest Expansion and Respiratory Effort, Clear to Auscultation Cardiovascular: NL Sounds; No Murmurs; No JVD, RRR Abdominal: NL Sounds; No Tenderness; No Distention Extremities: No Edema Skin: No Rash or Ulcers Neurological: Alert and Oriented x 3, NL Muscle Strength and Tone Lines/Tubes/Other Access: Clean, Dry and Intact Peripheral IV Nutrition: - - NPO Result Diagrams: 10/05/18 05:25 10/05/18 05:25 Assess/Plan/Problems-Billing Assessment: Mr. Bradley is a 63 yo M with PMH of afib (s/p cardioversion), HTN, angina, and HLD; who had a cardiac cath in January 2018 with 4 stents placed, followed by an NSTEMI in June 2018; who now presented to the ED with c/o intermittent CP for 3 weeks and was found to have elevated troponins. - Patient Problems (1) NSTEMI (non-ST elevated myocardial infarction) Code(s): I21.4 - NON-ST ELEVATION (NSTEMI) MYOCARDIAL INFARCTION Comment: - Intermittent chest pain for 3 weeks, relieved by nitro; no further CP since admission - History of cardiac cath in 2017 with 4 stents placed; awaiting these records from [facility] - Troponin peaked at 1.21; no EKG changes - Echo shows EF 50-55%, subtle inferior and anterior wall hypokinesis - Appreciate Cardiology consult; plan for cardiac cath today - Continue heparin drip, metoprolol, atorvastatin, Effient, nitro, aspirin (2) HTN (hypertension) Code(s): I10 - ESSENTIAL (PRIMARY) HYPERTENSION Comment: - SBP elevated on admission, resolved with nitro; SBP now 150-180s - Continue metoprolol, diltiazem, lisinopril, hydralazine (3) Atrial fibrillation Code(s): I48.91 - UNSPECIFIED ATRIAL FIBRILLATION Comment: - S/p cardioversion in June 2018, remains in NSR - Holding Eliquis for cath - Continue metoprolol, diltiazem (4) Hyperlipidemia Code(s): E78.5 - HYPERLIPIDEMIA, UNSPECIFIED Comment: - Lipid panel shows good control - Continue atorvastatin (5) Prediabetes Code(s): R73.03 - PREDIABETES Comment: - Hgb A1c in June was 6.8%; repeat pending (6) DVT prophylaxis Comment: - Heparin gtt (7) Full code status Code(s): Z78.9 - OTHER SPECIFIED HEALTH STATUS Comment: Status and Disposition: Observation for NSTEMI. Plan for cardiac cath today. Anticipate d/c home when medically stable. Attending: Maikel Rodriguez
[2018-10-05 12:39] LABS: BUN/Creatinine Ratio 16.2 (8-20); Calcium 9.4 mg/dL (8.6-10.3); Potassium 3.7 mmol/L (3.5-5.0)
[2018-10-05] MEDS ORDERED: Heparin(*) 1000 UNIT/ML 10 ML VIAL CATH LAB IV ONE (13:10)
[2018-10-05] MEDS ORDERED: VERAPAMIL 2.5 MG/ML 2 ML VIAL ** 5 mg/2 ml ONE (13:10)
[2018-10-05] MEDS ORDERED: Heparin 2 UNITS/ML IVPREMIX* 3,000 ML IV ONE (13:11)
[2018-10-05] MEDS ORDERED: nitroGLYCERIN DRIP* 25,000 MCG/250 ML BTL ONE (13:11)
[2018-10-05] MEDS ORDERED: Iohexol 350 (CONTRAST) 200 ML MDV IV ONE (13:11)
[2018-10-05] MEDS ORDERED: Lidocaine 1% INJ* 10 MG/ML 30 ML SDV ONE (13:11)
[2018-10-05] MEDS ORDERED: Midazolam* 1 MG/ML 10 ML VIAL (10 MG) ONE (13:24)
[2018-10-05] MEDS ORDERED: fentaNYL* 50 MCG/ML 2 ML VIAL (100 MCG VIAL) ONE (13:24)
[2018-10-05] MEDS ORDERED: Nitroglycerin TAB 0.4 MG* 0.4 MG TAB SL PRN (15:32)
[2018-10-05] MEDS ORDERED: NS 0.9% 1000 ML* 400 ML IV SCH (15:45)
[2018-10-06 06:06] LABS: BUN/Creatinine Ratio 16.3 (8-20); EGFR Non-African American 89.2 (>60); Potassium 4.1 mmol/L (3.5-5.0)
[2018-10-06] MEDS: ALPRAZolam TAB* 0.5 MG PO PRN (07:47)
--- NOTE | 2018-10-06 08:53 | PN ---
Subjective Date of Service: 10/06/18 - s/p NSTEMI HARJIT/OM2 Interval History: No events last night, patient walking the halls when I entered his room. He denies chest pain, sob, kline, lightheadedness, palpitations or dizziness. He offers no complaints but is anxious to go home. I spoke with SHRUTHI Castro who states he is doing well and had no events last night. Medications Active Medications: Acetaminophen (Tylenol Tab*) 650 mg PO Q4H PRN PRN Reason: FEVER/PAIN Alprazolam (Xanax Tab*) 0.5 mg PO QID PRN PRN Reason: ANXIETY Last Admin: 10/06/18 07:47 Dose: 0.5 mg Apixaban (Eliquis*) 5 mg PO BID [facility] Aspirin (Aspirin Ec Tab*) 81 mg PO DAILY [facility] Last Admin: 10/05/18 09:37 Dose: 81 mg Atorvastatin Calcium (Lipitor*) 80 mg PO DAILY [facility] Last Admin: 10/05/18 09:36 Dose: 80 mg Diltiazem HCl (Cardizem Cd Cap*) 120 mg PO DAILY [facility]; Protocol Last Admin: 10/05/18 09:36 Dose: 120 mg Gabapentin (Neurontin Cap(*)) 300 mg PO TID [facility] Last Admin: 10/05/18 21:10 Dose: 300 mg Hydralazine HCl (Apresoline Iv*) 5 mg IV SLOW PU Q6H PRN PRN Reason: BLOOD PRESSURE Last Admin: 10/05/18 04:43 Dose: 5 mg Lisinopril (Prinivil Tab*) 20 mg PO BID [facility] Last Admin: 10/05/18 21:09 Dose: 20 mg Metoprolol Succinate (Toprol Xl Tab*) 100 mg PO BID [facility] Last Admin: 10/05/18 21:09 Dose: 100 mg Nitroglycerin (Nitroglycerin Tab 0.4 Mg*) 0.4 mg SL Q5M PRN PRN Reason: ANGINA Oxycodone HCl (Roxycodone Tab*) 10 mg PO Q8H PRN PRN Reason: PAIN Last Admin: 10/05/18 05:58 Dose: 10 mg Oxycodone HCl (Oxycontin(*)) 40 mg PO BID [facility] Last Admin: 10/05/18 21:09 Dose: 40 mg Prasugrel (Effient (Nf)) 10 mg PO DAILY [facility] Last Admin: 10/05/18 09:40 Dose: 10 mg Objective Vital Signs: Temp Pulse Resp BP Pulse Ox 98.7 F 50 26 123/68 92 10/06/18 03:34 10/06/18 06:01 10/06/18 07:47 10/06/18 06:01 10/06/18 06:01 Oxygen Devices in Use Now: None Appearance: A+O x3, cooperative with exam. Appears well nourished in no apparent distress. Ears/Nose/Mouth/Throat: NL Teeth, Lips, Gums, Mucous Membranes Moist Neck: NL Appearance and Movements; NL JVP Respiratory: Clear to Auscultation Cardiovascular: NL Sounds; No Murmurs; No JVD, RRR, No Edema Abdominal: NL Sounds; No Tenderness; No Distention Extremities: No Edema Skin: - - right radial access site is intact, 3+ right radial pulse palpated. Cap refill < 3 seconds. Lines/Tubes/Other Access: Clean, Dry and Intact Peripheral IV Laboratory Results: 10/05/18 05:25 10/06/18 05:00 INR (Anticoag Therapy) 0.99 (0.77-1.02) 10/05/18 05:25 APTT 70.2 seconds (26.0-36.3) H 10/05/18 05:25 Total Bilirubin 0.40 mg/dL (0.2-1.0) 10/03/18 09:54 AST 17 U/L (13-39) 10/03/18 09:54 ALT 18 U/L (7-52) 10/03/18 09:54 Alkaline Phosphatase 63 U/L (34-104) 10/03/18 09:54 CK-MB (CK-2) 4.5 ng/mL (0.6-6.3) 10/03/18 09:54 B-Natriuretic Peptide 96 pg/mL (<=100) 10/03/18 09:54 Total Protein 7.3 g/dL (6.4-8.9) 10/03/18 09:54 Albumin 3.9 g/dL (3.2-5.2) 10/03/18 09:54 Globulin 3.4 g/dL (2-4) 10/03/18 09:54 Albumin/Globulin Ratio 1.1 (1-3) 10/03/18 09:54 Triglycerides 151 mg/dL 10/05/18 05:25 Cholesterol 112 mg/dL 10/05/18 05:25 LDL Cholesterol 45 mg/dL 10/05/18 05:25 HDL Cholesterol 36.4 mg/dL 10/05/18 05:25 10/03/18 10/03/18 10/03/18 09:54 12:42 16:44 Troponin I 0.04 H* 0.31 H* 1.03 H* 10/03/18 10/04/18 20:24 00:25 Troponin I 1.21 H* 0.92 H* Laboratory Results - last 24 hr 10/04/18 10/05/18 10/05/18 04:52 12:10 14:05 POC Activ Clotting Time < 115 Sodium 140 Potassium 3.7 Chloride 105 Carbon Dioxide 28 Anion Gap 7 BUN 11 Creatinine 0.68 Est GFR ( Amer) 141.6 Est GFR (Non-Af Amer) 117.0 BUN/Creatinine Ratio 16.2 Glucose 141 H Hemoglobin A1c 6.6 H Calcium 9.4 10/05/18 10/05/18 10/05/18 14:18 14:37 15:15 POC Activ Clotting Time 160 323 274 Sodium Potassium Chloride Carbon Dioxide Anion Gap BUN Creatinine Est GFR ( Amer) Est GFR (Non-Af Amer) BUN/Creatinine Ratio Glucose Hemoglobin A1c Calcium 10/06/18 05:00 POC Activ Clotting Time Sodium 139 Potassium 4.1 Chloride 104 Carbon Dioxide 31 Anion Gap 4 BUN 14 Creatinine 0.86 Est GFR ( Amer) 108.0 Est GFR (Non-Af Amer) 89.2 BUN/Creatinine Ratio 16.3 Glucose 114 H Hemoglobin A1c Calcium 9.0 Diagnostic Imaging: Echo 10/03/2018; LVEF 50-55% TTA 3.7cm with mild LA dilatation Telemetry reviewed; NSR rate NSR with PACs rate 50-60's EKG Data: Todays EKG reviewed. NSR rate 61 with known RBBB Assessment/Plan #1 NSTEMI 10/03/2018 s/p HARJIT OM 2 with distal dissection covered with HARJIT. no c/ o chest pain since presentation 10/03/2018. Troponin peaked at 1.2 on 10/03/2018. LVEF now 50-55%. He is stable and asymptomatic at this time. He already had a scheduled out patient f/u visit with Dr. Desai 10/15/2018 at 8am which he will keep. He is on ASA 81/day and Effient 10mg P daily. Given h/o PAF will restart Eliquis 5mg PO BID. However, patient will need to keep appointment next week so duration of triple therapy can be address with primary automatic vulcanizing operator. Patient has outstanding prescription refills at [facility] thus will not need prescription. Radial access site is intact. #2 h/o PAF; Currently in NSR with frequent PACs on telemetry. Had YAZAN/CV 2017. Chads Vasc 3( h/o HTN, vascular disease and age) Will restart eliquis 5mg PO BID. He denies h/o bleeding complications. He is to f/u with Dr. Ingram next week for further direction on duration of triple therapy(ASA/Effient/ Eliquis). In June, Dr. Willard stopped ASA and continued Effient and Eliquis. #3 h/o HTN; BP today 123/68. appears well controlled on current medication regimen. #4 h/o CAD; h/o PCI/RCA in 2000 with repeat PCI to RCA with HARJIT x4 in 01/2018. He is s/p HARJIT OM2 this admission due to above #1. He is to go home on ASA 81/day , Effient 10mg/day, Lopressor 100mg Po BID and previous dose of Rosuvastatin 40mg Po QHS. LDL is at goal (45) #5 Disposition pending course. will sign off. Please do not hesitate tp contact our service for any questions or concerns. Dale Jones who agrees with plan of care.
[2018-10-06] MEDS ORDERED: Apixaban* 5 MG TAB PO SCH (09:00)
[2018-10-06] MEDS: oxyCODONE TAB* 5 MG TAB PO PRN (09:32)
[2018-10-06] MEDS: oxyCODONE SR TAB(*) 40 MG TAB.SR PO SCH (09:33)
[2018-10-06] MEDS: Lisinopril TAB* 10 MG PO SCH (09:33)
[2018-10-06] MEDS: Aspirin EC TAB* 81 MG TAB.EC PO SCH (09:33)
[2018-10-06] MEDS: Metoprolol Succinate XL TAB* 100 MG PO SCH (09:33)
[2018-10-06] MEDS: Diltiazem CD CAP* 120 MG PO SCH (09:33)
[2018-10-06] MEDS: Gabapentin CAP(*) 300 MG PO SCH (09:33)
[2018-10-06] MEDS: Atorvastatin* 80 MG TAB PO SCH (09:33)
[2018-10-06 10:38] VITALS: BP 147/67
--- NOTE | 2018-10-06 13:28 | CATH ---
CC: Dr. Clark Desai, [facility]; Dr. Isai Pandya * CARDIAC CATHETERIZATION REPORT: DATE OF PROCEDURE: 10/05/18 - ROOM #ICU-7 PROCEDURE: Cardiac catheterization including coronary angiography. INDICATION: Acute coronary syndrome, coronary artery disease. The patient is a 63-year-old gentleman with a history of cardiac stenting. The patient had 4 stents placed to his right coronary artery back in January 2018. The patient was admitted to the hospital with chest pain. He had a positive troponin level of 1.1. Cardiac catheterization was recommended. DESCRIPTION OF PROCEDURE: The patient was brought to the cardiac catheterization lab in a fasting state. Informed consent had been obtained prior to the procedure. All labs were reviewed. The patient arrived in the laboratory specialist with IV heparin going. The patient's right radial area was prepped and draped in the usual fashion; 1% lidocaine was used for local anesthesia. The radial artery was entered by a Seldinger technique and a guidewire was placed. Over the guidewire, a 6-Georgian sheath introducer was placed. After that, infusion of diltiazem and nitroglycerin was done through the sheath. The patient underwent coronary angiography using a 6- Georgian AR1 catheter and a 6- Georgian AL2 catheter. At the end of the procedure, the patient went on to have stenting of his left circumflex artery. Please see Dr. Pandya note for that procedure. A total of 90 cc of contrast was used. A total of 7.6 minutes of fluoro time was used. FINDINGS: 1. Right coronary artery: The RCA was a large dominant vessel, gave off PDA. There was extensive stenting in the proximal and mid portion of the right coronary artery. There was an eccentric 50% plaque in the mid right coronary artery. The remainder of the vessel was without disease. 2. Left main artery: The left main was normal in size. It bifurcated into the LAD and circumflex. There was no evidence of stenosis. 3. Left anterior descending artery: The LAD was normal in size. It gave off 1 diagonal branch. There was no evidence of stenosis. 4. Left circumflex artery: The circumflex artery was normal in size. It gave off 3 obtuse marginal branches. There was no evidence of stenosis in the left circumflex artery. There was no evidence of stenosis in the OM1 and OM3 vessels. The OM2 vessel had an eccentric 95% stenosis at its proximal portion. IMPRESSION: 1. Right coronary artery stenting was open and patent. 2. Obtuse marginal 2 vessel with an eccentric 95% stenosis at its proximal portion. 3. No significant coronary artery disease to the left anterior descending . RECOMMENDATION: The patient will undergo angioplasty and stenting to his OM2 vessel. [id number]/[facility] #: [id number] MTDD
--- NOTE | 2018-10-06 21:13 | DS ---
CC: Dr. Louis Fernandez; Dr. Denver Desai * DISCHARGE SUMMARY: DATE OF ADMISSION: 10/03/18 DATE OF DISCHARGE: 10/06/18 PRIMARY CARE PROVIDER: Dr. Louis Fernandez. EXTRACTOR FILLER: Dr. Denver Desai. ATTENDING PHYSICIAN: Dr. Maikel Rordiguez * (dictated by Susy Caro NP) PRIMARY DIAGNOSES: 1. Non-ST elevation myocardial infarction status post cardiac catheterization with drug eluting stent placed in the OM2 vessel. 2. Hypertension. SECONDARY DIAGNOSES: 1. Atrial fibrillation. 2. Hyperlipidemia. 3. Prediabetes. STUDIES WHILE IN THE HOSPITAL: 1. Chest x-ray on 10/03/18 reads as cardiomegaly, no active cardiopulmonary disease. 2. EKG on 10/03/18 shows normal sinus rhythm with a rate of 94, right bundle branch block, minimal ST depression in V3 through V6. 3. EKG on 10/03/18 shows normal sinus rhythm with a rate of 74, right bundle block, QTc 486. No ischemic changes. 4. Transthoracic echocardiogram on 10/04/18 reads as left ventricular chamber size was normal. Mild concentric left ventricular hypertrophy is observed. The estimated ejection fraction is 50% to 55%, with subtle relative inferior and anterior wall hypokinesis. The left atrium is mildly dilated. The right atrium is mildly dilated. There is mild dilation of the ascending aorta and the aortic root. 5. The EKG on 10/04/18 shows sinus bradycardia with the rate of 58, right bundle branch block, QTc 474. 6. EKG on 10/06/18 shows normal sinus rhythm with the rate of 61, right bundle branch block, QTc 478. No ischemic changes. HISTORY OF PRESENT ILLNESS AND HOSPITAL COURSE: Mr. Bradley is a 63-year-old male with past medical history of hypertension, coronary artery disease, status post 4 drug eluting stents placed in 2018, atrial fibrillation, hyperlipidemia, NSTEMI in June 2018 and prediabetes, who presented to the emergency room on 10/03/18 with complaints of chest pain. Please see the history and physical by Luis Hernandez NP for a complete summary of the events leading up to this hospitalization. In short, the patient reported intermittent chest discomfort for several weeks. At times it was exertional and it had previously responded to [place]. On the day of admission, he reported a pain in the middle of his chest, radiating into both of his hands because he felt as though the pain was worsening. He presented to the emergency room. In the emergency room, he was noted to have stable EKG, though he did have an elevated troponin at 0.04. He was admitted by the hospitalist service. The patient was seen in consultation by Dr. Desir from Cardiology who felt as though the patient would likely need a cardiac catheterization, though the patient was very hesitant as he had his previous catheterization at [facility] and felt as though he would like to have any additional procedures done there. He was ultimately placed on a heparin drip after he was noted to have increasing troponins. Troponins peaked at 1.21. There were no significant EKG changes at that point. The patient was agreeable to staying at [facility] for treatment as he did not want to pay out of pocket for transfer to [facility]. He had an echocardiogram as noted above. He remained stable over the weekend with no recurrent chest pain, although he was placed on nitro paste. Blood pressure was elevated on admission and that also resolved with nitro. On 10/05/18, the patient underwent a cardiac catheterization. Please see the report by Dr. Jones for a complete summary of the procedure. In short, the left circumflex artery was normal with no evidence of stenosis. It gave off 3 obtuse marginal branches, the second of which had 95% stenosis and for that reason, 2 new drug-eluting stents were placed. The patient tolerated the procedure well and went to the intensive care unit afterwards. He had an uneventful night. On exam this morning, the patient reports feeling well. He has had no additional chest discomfort or other cardiac symptoms. He is up, ambulating in the room and he is anxious to return home. He was seen by Julia Zelaya NP from Cardiology this morning who cleared him for discharge on triple therapy with aspirin, FEN, and Eliquis and instructions for further followup with the patient's primary patient relations coordinator, Dr. Desai. Mr. Bradley is stable for discharge today. Vital signs are as follows: Temp 98.7, heart rate 65, respiratory rate 16, oxygen saturation 95% on room air, blood pressure 147/67. DISCHARGE MEDICATIONS: New Medications: 1. Aspirin 81 mg p.o. daily. Continued Medications: 1. Alprazolam 0.5 mg p.o. 4 times a day p.r.n. anxiety. 2. Apixaban 5 mg p.o. b.i.d. 3. Diltiazem ER 120 mg p.o. daily. 4. Gabapentin 300 mg p.o. t.i.d. 5. Lisinopril 20 mg p.o. b.i.d. 6. Metoprolol succinate 100 mg p.o. b.i.d. 7. Oxycodone IR 10 mg p.o. q.8 hours p.r.n. pain. 8. Oxycodone SR 40 mg p.o. b.i.d. 9. Effient 10 mg p.o. daily. 10. Rosuvastatin 40 mg p.o. daily. 11. Nitroglycerin 0.4 mg sublingual q.5 minutes p.r.n. chest pain. DISCHARGE PLAN: Mr. Bradley will be discharged home. Activity will be as tolerated. Diet will be heart healthy. He has been provided wound care instructions for the right radial wrist access site and further instructions from Cardiology about symptoms requiring followup. The patient will need to follow up with his primary care provider in 4 to 7 days. He will also need to follow up with his patient relations coordinator, Dr. Desai. Julia Zelaya NP made an appointment with Dr. Desai for 10/15/18 at 8 a.m. At that point, the patient will need to discuss triple therapy with his patient relations coordinator to determine if he would like to continue this. The patient was instructed to return to the emergency room or nearest hospital for any worsening symptoms, shortness breath , lightheadedness, dizziness, chest discomfort, high fevers, chills, night sweats, loss of consciousness, or any other worrisome signs or symptoms. This is a summarized report of a complex medical history and hospital stay. For further details, please see the entire medical record. TIME SPENT: Approximately 45 minutes were spent on this discharge. SUSY CARO NP [id number]/[facility] #: [id number] [facility]
--- NOTE | 2018-10-06 21:13 | CATH ---
CC: Dr. Maikel Rodriguez; Dr. Desai; Dr. Jones * STENT REPORT: DATE OF PROCEDURE: 10/06/18 PRIMARY CARE PHYSICIAN: Dr. Maikel Rodriguez. GAMBLING SUPERVISOR: Dr. Desai. PROCEDURES: 1. Diagnostic catheterization by Dr. Jones. 2. Circumflex OM intervention, Dr. Pandya, 2.5 x 15 Xience drug-eluting stent with second distal overlapping 2.5 x 23 Xience drug-eluting stent for distal edge dissection. HISTORY: A 63-year-old male with 4 stents in the RCA last year, now with gradually progressive limiting angina, stress imaging showed a lateral reversible defect. Diagnostic catheterization by Dr. Jones demonstrated a culprit OM stenosis with calcification. I was asked to perform intervention. GUIDING CATHETER: Circumflex OM guiding catheter 6F VL 3.5. Wire, 14 BMW. Predilatation balloons required 2.0 mm, 2.5 mm. The stenosis was then stented with a 2.5 x 15 Xience drug- eluting stent, 9 atmospheres 10 seconds, postdilated with a 2.5 x 15 NC balloon , 16 atmospheres for 60 seconds. Due to distal edge dissection, an additional Xience drug-eluting stent, 2.5 x 23 was advanced and deployed 9 atmospheres 15 seconds, postdilated with a 2.5 x 15 NC to 14 atmospheres at the distal end, and 16 atmospheres at the overlap. MEDICATIONS: 1. Subcu lidocaine. 2. IV Versed. 3. IV fentanyl. 4. Nitroglycerin 200 mcg. 5. Heparin 10,000 units. 6. Pretreated with Effient. CONCLUSION: Symptomatic high-grade circumflex OM stenosis with heavy calcification, with some difficulty for crossing, but accomplished after numerous predilatations. Distal edge dissection covered with a second stent. Excellent angiographic result. For the remainder of the diagnostic portion, see Dr. Jones's report. [id number]/[facility] #: [id number] [facility]
== END 2018-10-06 11:16 | disposition home or self-care (01) | DRG 247 ==
LOC: ED 09:21 → MEDTELE 11:36 → OBSVTOIN 10-05 14:12 → ICU 10-05 15:33
PROVIDERS: ADMIT Internal Medicine; ATTEND Internal Medicine
PROC: B2111ZZ Fluoroscopy of Multiple Coronary Arteries using Low Osmolar Contrast (ICD-10-PCS; principal; 2018-10-05 13:30)
PROC: 027035Z Dilation of Coronary Artery, One Artery with Two Drug-eluting Intraluminal Devices, Percutaneous Approach (ICD-10-PCS; 2018-10-06)
DX: I21.4 Non-ST elevation (NSTEMI) myocardial infarction (principal); I45.2 Bifascicular block; I10 Essential (primary) hypertension; K21.9 Gastro-esophageal reflux disease without esophagitis; M19.90 Unspecified osteoarthritis, unspecified site; G62.9 Polyneuropathy, unspecified; F41.9 Anxiety disorder, unspecified; F43.10 Post-traumatic stress disorder, unspecified; F32.9 Major depressive disorder, single episode, unspecified; F90.9 Attention-deficit hyperactivity disorder, unspecified type; I77.819 Aortic ectasia, unspecified site; I25.119 Atherosclerotic heart disease of native coronary artery with unspecified angina pectoris; E78.5 Hyperlipidemia, unspecified; M47.896 Other spondylosis, lumbar region; E66.9 Obesity, unspecified; I48.0 Paroxysmal atrial fibrillation; R73.03 Prediabetes; K44.9 Diaphragmatic hernia without obstruction or gangrene; Z82.49 Family history of ischemic heart disease and other diseases of the circulatory system; Z95.5 Presence of coronary angioplasty implant and graft; Z68.38 Body mass index [BMI] 38.0-38.9, adult; I25.2 Old myocardial infarction; Z85.828 Personal history of other malignant neoplasm of skin; Z87.891 Personal history of nicotine dependence; Z86.11 Personal history of tuberculosis; Z79.82 Long term (current) use of aspirin; Z79.01 Long term (current) use of anticoagulants
CPT/HCPCS: 36415; 71045; 80048; 80053; 80061; 81003; 82553; 83036; 83605; 83735; 83880; 84484; 85025; 85347; 85610; 85730; 93005; 93306; 93454; 99156; 99157; 99285; A9270-GY; C1725; C1769; C1876; C1887; C8929; C9600-LC; G0378; J0360; J1644; J2250; J3010